=== PATIENT | female | born 1950 | race Caucasian/White ===

== ENCOUNTER → 2017-02-26 | Outpatient (CLI) | payer MEDICARE, BC ==
--- NOTE | 2017-02-26 12:50 | MM ---
Reason for exam: additional evaluation requested from prior study. Last mammogram was performed 1 year and 6 months ago. History: Patient is postmenopausal. Family history of breast cancer in mother at age 50 and breast cancer in aunt. Benign excisional biopsy of the right breast, 2001. Benign excisional biopsy of the right breast, 1996. Physical Findings: Nurse did not find any significant physical abnormalities on exam. MG 3D Diag Mammo W/Cad DALIA Bilateral CC and MLO view(s) were taken. LM view(s) were taken of the left breast. Prior study comparison: September 11, 2015, mammogram, performed at [facility]. January 24, 2014, mammogram, performed at [facility]. Finding: There are grouped/clustered calcifications in the upper inner quadrant of the left breast. Increase in number of calcifications since September 11, 2015 and January 24, 2014. These results were verbally communicated with the patient and result sheet given to the patient on 02/26/17. ASSESSMENT: Suspicious, BI-RAD 4 RECOMMENDATION: Stereotactic core biopsy of the left breast. Called with Dr. Angeles Sullivan mammographic findings and has scheduled an appointment for the patient for 04/01/17 at 10:[address] Markos Sullivan. Biposy scheduled for 03/03/17 at 2:20. PRELIMINARY REPORT CALLED AND FAXED TO DR. SULLIVAN ON 02/26/17 AT 300/TP.
== END | disposition home or self-care (01) ==
LOC: RADMAMWWP 10:54
PROVIDERS: ATTEND Family Medicine
DX: R92.8 Other abnormal and inconclusive findings on diagnostic imaging of breast (principal); Z80.3 Family history of malignant neoplasm of breast
CPT/HCPCS: G0204; G0279

== ENCOUNTER → 2017-03-03 | Day surgery (SDC) | payer MEDICARE, BC ==
[~2017-03-03] MED LIST: BACITRACIN OINT 1 EACH PACKET TOPICAL ONE; LIDOCAINE 1%-EPI 1:100,000 20 ML VIAL ONE
--- NOTE | 2017-03-03 15:20 | MM ---
EXAMINATION TYPE: MG stereo VAD BX LT DATE OF EXAM: 03/03/2017 2:52 PM COMPARISON: 02/26/2017 CLINICAL HISTORY: Left breast calcifications TECHNIQUE: Stereotactic guided core biopsy of left breast. FINDINGS: The procedure of stereotactic guided core biopsy was explained to the patient. Benefits, alternatives, and risks were discussed. An informed consent was then obtained. The shortness pathway for biopsy was chosen. Shortness pathway was chosen.. I performed the localization, then surgeon, and performed the remainder of the procedure. A vacuum assisted biopsy gun was used to obtain multiple core samples. The patient tolerated the procedure well without any immediate complication. The patient was kept in the radiology department for short stay after the procedure and then discharged home in stable condition. Targeted calcifications are identified in specimen mammogram. Post biopsy mammogram shows the clip to appear in satisfactory position relative to the targeted area of concern on the preprocedure images. IMPRESSION: SUCCESSFUL, UNCOMPLICATED STEREOTACTIC GUIDED CORE BIOPSY OF AREA OF CONCERN IN THE left BREAST, FULL PATHOLOGY RESULTS TO FOLLOW. 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 Recommendation Follow up mammogram of the left breast in 6 months. LUCÍA
== END ==
LOC: RADMAMWWP 12:53
PROVIDERS: ATTEND Surgery
DX: N62 Hypertrophy of breast (principal); R92.8 Other abnormal and inconclusive findings on diagnostic imaging of breast; N64.89 Other specified disorders of breast
CPT/HCPCS: 88305; 19081; A4648

== ENCOUNTER → 2017-04-14 | Outpatient (CLI) | payer MEDICARE, BC ==
[2017-04-14 10:17] LABS: ALT 39 U/L (9-52); AST 43 U/L (14-36); Alkaline Phosphatase 90 U/L (38-126); Anion Gap 11 mmol/L; Bilirubin, Delta 0.3 mg/dL (0.0-0.2); Blood Urea Nitrogen 11 mg/dL (7-17); Calcium 9.8 mg/dL (8.4-10.2); Carbon Dioxide 28 mmol/L (22-30); Chloride 99 mmol/L (98-107); Cholesterol 139 mg/dL (<200); Glucose 90 mg/dL (74-99); HDL Cholesterol 80 mg/dL (40-60); Non-African American GFR(MDRD) >60 (>60 ml/min/1.73 sqM); Potassium 4.1 mmol/L (3.5-5.1); Sodium 138 mmol/L (137-145); Total Bilirubin 1.3 mg/dL (0.2-1.3); Total Protein 7.5 g/dL (6.3-8.2); Triglycerides 50 mg/dL (<150)
== END | disposition home or self-care (01) ==
LOC: LABWHC1 09:23
PROVIDERS: ATTEND Family Medicine
DX: I25.9 Chronic ischemic heart disease, unspecified (principal); E78.2 Mixed hyperlipidemia; E11.8 Type 2 diabetes mellitus with unspecified complications
CPT/HCPCS: 36415; 80053; 80061; 82248; 83721

== ENCOUNTER → 2017-05-10 | Outpatient (CLI) | payer MEDICARE, BC ==
--- NOTE | 2017-05-10 10:12 | US ---
EXAMINATION TYPE: US abdomen complete DATE OF EXAM: 05/10/2017 COMPARISON: May 27, 2016 CLINICAL HISTORY: R10.9 abdominal pain. EXAM MEASUREMENTS: Liver Length: 13.3 cm Gallbladder Wall: 0.2 cm CBD: 0.5 cm Spleen: 7.8 cm Right Kidney: 9.3 x 5.1 x 4.6 cm Left Kidney: 9.4 x 4.3 x 4.9 cm Pancreas: wnl Liver: wnl Gallbladder: wnl Evidence for sonographic Bowman's sign: no CBD: wnl Spleen: wnl Right Kidney: wnl Left Kidney: wnl Upper IVC: wnl Abd Aorta: wnl The liver is homogenous. The intrahepatic portion of the IVC and proximal abdominal aorta are within normal limits. There is no evidence of cholelithiasis. Common bile duct is unremarkable. The visu alized portions of the pancreas are homogenous. The spleen is unremarkable. Kidneys are symmetric a nd free of hydronephrosis. No renal lesions are seen. IMPRESSION: Unremarkable study.
== END | disposition home or self-care (01) ==
LOC: RADUSWWP 09:35
PROVIDERS: ATTEND Family Medicine
DX: R10.9 Unspecified abdominal pain (principal)
CPT/HCPCS: 76700

== ENCOUNTER → 2017-09-07 | Outpatient (CLI) | payer MEDICARE, BC ==
--- NOTE | 2017-09-07 11:25 | MM ---
Reason for exam: follow-up at short interval from prior study. Last mammogram was performed 6 months ago. History: Patient is postmenopausal. Family history of breast cancer in mother at age 50 and breast cancer in aunt. Benign MG stereo VAD BX LT of the left breast, March 03, 2017. Benign excisional biopsy of the right breast, 2001. Benign excisional biopsy of the right breast, 1996. Physical Findings: Nurse did not find any significant physical abnormalities on exam. MG 3D Diag Mammo W/Cad LT CC and MLO view(s) were taken of the left breast. Prior study comparison: February 26, 2017, bilateral MG 3d diag mammo w/cad DALIA. September 11, 2015, mammogram, performed at [facility]. The breast tissue is heterogeneously dense. This may lower the sensitivity of mammography. Finding: There are typically benign round, regional calcifications in the left breast. Previous mammotome biopsy in the left breast. These results were verbally communicated with the patient and result sheet given to the patient on 09/07/17. ASSESSMENT: Benign, BI-RAD 2 RECOMMENDATION: Routine screening mammogram of both breasts in 6 months. Back on schedule for February 2018.
== END | disposition home or self-care (01) ==
LOC: RADMAMWWP 10:19
PROVIDERS: ATTEND Family Medicine
DX: R92.8 Other abnormal and inconclusive findings on diagnostic imaging of breast (principal)
CPT/HCPCS: G0206; G0279

== ENCOUNTER 2017-09-22 07:34 | Day surgery (SDC) | payer MEDICARE, BC ==
[2017-09-21 09:23] VITALS: BMI 20.7
[~2017-09-22 07:34] MED LIST changes: -BACITRACIN OINT 1 EACH PACKET TOPICAL ONE; +LIDOCAINE 1% 20 ML VIAL (10MG/ML) FOR IV START INTRADERMA PRN; -LIDOCAINE 1%-EPI 1:100,000 20 ML VIAL ONE
[2017-09-22] MEDS: LACTATED RINGERS 1,000 ML IV SCH ×2 (08:06→08:15)
[2017-09-22 08:11] VITALS: TEMP 97.7
[2017-09-22] MEDS ORDERED: PROPOFOL 10 MG/ML 20 ML VIAL IV ONE (08:18)
--- NOTE | 2017-09-22 08:38 | P.PCN ---
Date of Procedure: 09/22/17 Procedure(s) Performed: BRIEF HISTORY: Patient is a 67-year-old, pleasant, white female, scheduled for an upper endoscopy as a part of evaluation of intermittent dysphagia to solids for the last several months duration. Symptoms lately have been progressively getting worse. She also has heartburn and takes Protonix 40 mg daily.. PROCEDURE PERFORMED: Esophagogastroduodenoscopywith biopsy. PREOPERATIVE DIAGNOSIS: Intermittent dysphagia to solids. IV sedation per anesthesia. PROCEDURE: After informed consent was obtained, the patient was brought into the endoscopy unit. IV sedation was administered by Anesthesia under continuous monitoring. Initially the Olympus GIF-140 video endoscope was inserted into the mouth. Esophagus intubated without any difficulty. It was gradually advanced into the stomach and duodenum and carefully examined. The bulb and the second part of the duodenum appeared normal. The scope at this time was withdrawn to the stomach, adequately insufflated with air, and upon careful examination, mucosa of the antrum,had diffuse erythema consistent with antral gastritis and biopsies were done from this area. Thebody, cardia and the fundus appeared normal. The scope was then withdrawn into the esophagus. small hiatal hernia noted.The GE junction was located at 39 cm from the incisors. The esophagus appeared normal. biopsies were done from esophagus to rule out eosinophilic esophagitis.There were no erosions or ulcerations seen and the patient tolerated the procedure well. IMPRESSION: 1.Small hiatal hernia but no evidence of esophagitis or esophageal stricture. 2.Mild antral gastritis. RECOMMENDATIONS: The findings of this examination were discussed with the patient as well as her family. She was advised to follow with the biopsy results. She will continue with Protonix 40 mg daily and continue to follow antireflux measures..
[2017-09-22 09:03] VITALS: BP 163/74; PULSE 69; RESP 17
== END 2017-09-22 09:11 | disposition home or self-care (01) ==
LOC: ORWHC2ENDO 07:34
PROVIDERS: ATTEND Internal Medicine Gastroenterology
DX: K29.50 Unspecified chronic gastritis without bleeding (principal); K21.0 Gastro-esophageal reflux disease with esophagitis; K44.9 Diaphragmatic hernia without obstruction or gangrene; I10 Essential (primary) hypertension; I25.10 Atherosclerotic heart disease of native coronary artery without angina pectoris; E78.5 Hyperlipidemia, unspecified; J45.909 Unspecified asthma, uncomplicated; F41.9 Anxiety disorder, unspecified; F17.200 Nicotine dependence, unspecified, uncomplicated; Z79.82 Long term (current) use of aspirin; Z79.02 Long term (current) use of antithrombotics/antiplatelets; Z79.51 Long term (current) use of inhaled steroids; Z79.899 Other long term (current) drug therapy; Z95.5 Presence of coronary angioplasty implant and graft
CPT/HCPCS: 43239; J2704; 88305; 88342

== ENCOUNTER → 2017-10-27 | Outpatient (CLI) | payer MEDICARE, BC ==
[2017-10-27 11:27] LABS: ALT 39 U/L (9-52); AST 38 U/L (14-36); Albumin 4.3 g/dL (3.5-5.0); Alkaline Phosphatase 73 U/L (38-126); Anion Gap 10 mmol/L; Bilirubin, Delta 0.2 mg/dL (0.0-0.2); Bilirubin,Unconjugated 0.8 mg/dL (0.0-1.1); Blood Urea Nitrogen 7 mg/dL (7-17); Calcium 9.9 mg/dL (8.4-10.2); Carbon Dioxide 29 mmol/L (22-30); Chloride 98 mmol/L (98-107); Cholesterol 143 mg/dL (<200); Glucose 87 mg/dL (74-99); HDL Cholesterol 82 mg/dL (40-60); LDL Cholesterol,Calculated 42 mg/dL (0-99); Sodium 137 mmol/L (137-145); Triglycerides 93 mg/dL (<150)
[2017-10-27 11:38] LABS: Potassium 4.4 mmol/L (3.5-5.1)
== END | disposition home or self-care (01) ==
LOC: LABWHC1 10:27
PROVIDERS: ATTEND Internal Medicine Cardiovascular Disease
DX: E78.2 Mixed hyperlipidemia (principal); E11.8 Type 2 diabetes mellitus with unspecified complications; I10 Essential (primary) hypertension
CPT/HCPCS: 36415; 80048; 80061; 80076

== ENCOUNTER 2018-03-09 21:59 | Emergency (ER) | payer MEDICARE, BC ==
[2018-03-09 22:31] VITALS: PULSE 67
--- NOTE | 2018-03-09 22:49 | ED ---
Fall HPI - General Chief Complaint: Fall Stated Complaint: Head injury Time Seen by Provider: 03/09/18 22:36 Source: patient, RN notes reviewed Mode of arrival: ambulatory - History of Present Illness Initial Comments: This is a 67-year-old female who presents to the emergency department with chief complaint of head injury. Patient is accompanied by her neighbor. Patient states that yesterday she went to get up and her left foot gave out on her causing her to fall forward and hitting the right side of her forehead on a table in her laundry room. Denies loss of consciousness. She states that this happened at 9:30 last evening. Today she went to [facility] and was evaluated for head injury and left foot pain. X-ray of the left foot was negative and patient was placed in a postoperative boot. i-drive recommended patient to follow up with her primary care provider to get a computed tomography scan. Patient states that her primary care provider's office is closed today so she was unable to obtain an order. She presents to the emergency department complaining of nausea and a headache. She denies any vision changes, fevers or chills, chest pain or shortness of breath, abdominal pain, nausea or vomiting, dizziness. She denies blood thinner use. - Related Data Home Medications Medication Instructions Recorded Confirmed Aspirin EC [Ecotrin Low Dose] 81 mg PO DAILY 08/04/16 03/09/18 Isosorbide Mononitrate [Isosorbide 30 mg PO DAILY 08/04/16 03/09/18 Mononitrate ER] Lisinopril 40 mg PO QAM 08/04/16 03/09/18 Metoprolol Succinate [Toprol XL] 50 mg PO BID 08/04/16 03/09/18 Rosuvastatin Calcium [Crestor] 20 mg PO HS 08/04/16 03/09/18 Budesonide-Formot 160-4.5 Mcg 2 puff INHALATION RT-DAILY 09/21/17 03/09/18 [Symbicort 160-4.5 Mcg Inhaler] Ezetimibe [Zetia] 10 mg PO HS 09/21/17 03/09/18 LORazepam [Ativan] 0.5 mg PO DAILY PRN 09/21/17 03/09/18 Pantoprazole [Protonix] 40 mg PO DAILY PRN 09/21/17 03/09/18 amLODIPine BESYLATE [Norvasc] 2.5 mg PO DAILY 09/21/17 03/09/18 Albuterol Inhaler [Ventolin Hfa 2 puff INHALATION RT-Q6H PRN 03/09/18 03/09/18 Inhaler] Allergies Allergy/AdvReac Type Severity Reaction Status Date / Time bee venom protein (honey bee) Allergy Severe Anaphylaxis Verified 03/09/18 22:48 Review of Systems ROS Statement: Those systems with pertinent positive or pertinent negative responses have been documented in the HPI. ROS Other: All systems not noted in ROS Statement are negative. Past Medical History Past Medical History: Coronary Artery Disease (CAD), GERD/Reflux Additional Past Medical History / Comment(s): UTIs, History of Any Multi-Drug Resistant Organisms: MRSA Date of last positivie culture/infection: 2009 MDRO Source:: R arm Past Surgical History: Heart Catheterization With Stent Additional Past Surgical History / Comment(s): Approximately 2007 had 2 coronary stents placed at [facility], L foot surgery for bunion and has screw, EGD/colonoscopy with polypectomy-benign, R breast bx x 2-benign, cataracts removed bilaterally. Past Anesthesia/Blood Transfusion Reactions: No Reported Reaction Date of Last Stent Placement:: 2007? Past Psychological History: Anxiety Smoking Status: Current some day smoker Past Alcohol Use History: Occasional Past Drug Use History: None Reported - Past Family History Father Additional Family Medical History / Comment(s): Father "young" due to alcoholism. Mother Additional Family Medical History / Comment(s): Mother of a "blood clot in her heart" in her 60's General Exam - General Exam Comments Initial Comments: General: Awake and alert, well-developed; in no apparent distress. Neighbor is at bedside. HEENT: Large hematoma noted to the right frontal forehead. Pupils are equal, round and reactive to light. Extraocular movements intact. Oropharynx moist without erythema or exudate. Neck: Supple. Normal ROM. Cardiovascular: Regular rate and rhythm. No murmurs, rubs or gallops. Chest symmetrical. Respiratory: Lungs clear to auscultation bilaterally. No wheezes, rales or rhonchi. Normal respiratory effort with no use of accessory muscles. Musculoskeletal: Normal ROM, no tenderness, strength 5/5 bilateral upper and lower extremities. Ambulating normally. Skin: [place]ana, warm and dry without rashes or lesions. Neurological: Alert and oriented x3. CN II-XII grossly intact. Speech is fluent and answers are appropriate. No focal neuro deficits. Finger to nose testing normal. Rapid alternating movements normal. Romberg negative. Psychiatric: Normal mood and affect. No overt signs of depression or anxiety noted. Limitations: no limitations Course Vital Signs 03/09/18 22:26 Temperature 98.0 F Pulse Rate 67 Respiratory 20 Rate Blood Pressure 137/80 O2 Sat by Pulse 98 Oximetry Medical Decision Making - Medical Decision Making This is a 67-year-old female who presents to the emergency department with chief complaint of head injury. Patient sustained a hematoma to her right forehead last evening she fell and struck her head on a table. She denies any loss of consciousness however complains of nausea and headache today. Computed tomography scan of the brain was obtained. This revealed no intracranial abnormalities or fractures. She does have soft tissue swelling at the right frontal forehead. Recommended Tylenol or ibuprofen as needed for headache. Recommend following up with patient's primary care provider within 1-2 days. Patient is in agreement with plan and voices understanding. Vital signs are stable and she is in no acute distress. She'll be discharged home at this time. All questions answered. - Radiology Data Radiology results: report reviewed CT brain without contrast impression: No acute intracranial abnormality. Right frontal scalp soft tissue swelling. No fracture. Minimal left maxillary sinusitis. Disposition Clinical Impression: Head injury Disposition: HOME SELF-CARE Condition: Good Instructions: Head Injury (ED), Hematoma (ED) Additional Instructions: Please follow up with primary care provider within 1-2 days. Return to emergency department if symptoms should worsen or any concerns arise. Is patient prescribed a controlled substance at d/c from ED?: No Referrals: Yousif Olivares MD [Primary Care Provider] - 1-2 days Time of Disposition: 23:47
[2018-03-09] MEDS ORDERED: ACETAMINOPHEN TAB 325 MG TAB PO STA (23:38)
--- NOTE | 2018-03-09 23:43 | CT ---
EXAMINATION TYPE: CT brain wo con DATE OF EXAM: 03/09/2018 COMPARISON: NONE HISTORY: fall/headache CT DLP: 1054.20 mGycm Automated exposure control for dose reduction was used. FINDINGS: Ventricles have fairly normal size. There is no mass effect nor midline shift. There is no sign of in tracranial hemorrhage. There is mild cerebral cortical atrophy. The calvarium is intact. There is mil d right frontal scalp soft tissue swelling. IMPRESSION: NO ACUTE INTRACRANIAL ABNORMALITY. RIGHT FRONTAL SCALP SOFT TISSUE SWELLING. NO FRACTURE. MINIMAL LEF T MAXILLARY SINUSITIS.
[2018-03-10 00:39] VITALS: BP 130/78; RESP 18; TEMP 98.6
== END 2018-03-10 00:25 | disposition home or self-care (01) ==
LOC: EC 21:59
DX: S00.83XA Contusion of other part of head, initial encounter (principal); I25.10 Atherosclerotic heart disease of native coronary artery without angina pectoris; F17.200 Nicotine dependence, unspecified, uncomplicated; Z86.14 Personal history of Methicillin resistant Staphylococcus aureus infection; Z95.5 Presence of coronary angioplasty implant and graft; Z91.030 Bee allergy status; Z79.51 Long term (current) use of inhaled steroids; Z79.82 Long term (current) use of aspirin; Z79.899 Other long term (current) drug therapy; W01.190A Fall on same level from slipping, tripping and stumbling with subsequent striking against furniture, initial encounter; Y92.008 Other place in unspecified non-institutional (private) residence as the place of occurrence of the external cause
CPT/HCPCS: 70450; 99283

== ENCOUNTER → 2018-04-06 | Outpatient (CLI) | payer MEDICARE, BC ==
--- NOTE | 2018-04-06 13:14 | BD ---
EXAMINATION TYPE: Axial Bone Density DATE OF EXAM: 04/06/2018 COMPARISON: NONE CLINICAL HISTORY: Osteoporosis screening. Postmenopausal female. Height: 61 IN Weight: 113 LBS FRAX RISK QUESTIONS: History of Fracture in Adulthood: YES LT FOOT AGE 67 Current Tobacco Use: YES RISK FACTORS HISTORY OF: Family History of Osteoporosis: YES GRANDMOTHER(M) Active: MODERATE Postmenopausal woman: AGE 56 Lost more than 2 inches in height since high school: YES 3" MEDICATIONS: Additional Medications: BLOOD PRESSURE MEDS EXAM MEASUREMENTS: Bone mineral densitometry was performed using the [employer]. Bone mineral density as measured about the Lumbar spine is: ----- L1-L4(G/cm2): 1.149 T Score Values are as follows: ----- L2: 3.2 ----- L3: 3.1 ----- L4: 2.7 ----- L1-L4: 2.2 Bone mineral density BASELINE Bone mineral density about the R hip (g/cm2): 0.857 Bone mineral density about the L hip (g/cm2): 0.887 T Score values are as follows: -----R Neck: -1.3 -----L Neck: -1.1 -----R Total: -1.0 -----L Total: -1.0 Bone mineral density BASELINE IMPRESSION: Osteopenia (T Score between -2.5 and -1). There is slightly increased risk of fracture and the patient may be considered for treatment. Re-Screen 2-5 years. NOTE: T-SCORE=SD OF THE YOUNG ADULT MEAN.
--- NOTE | 2018-04-06 13:18 | MM ---
Reason for exam: screening (asymptomatic). Last mammogram was performed 7 months ago. History: Patient is postmenopausal. Family history of breast cancer in mother at age 50 and breast cancer in aunt. Benign MG stereo VAD BX LT of the left breast, March 03, 2017. Benign excisional biopsy of the right breast, 2001. Benign excisional biopsy of the right breast, 1996. Physical Findings: A clinical breast exam by your physician is recommended on an annual basis and results should be correlated with mammographic findings. MG 3D Screening Mammo W/Cad Bilateral CC and MLO view(s) were taken. Prior study comparison: September 07, 2017, left breast MG 3d diag mammo w/cad LT. February 26, 2017, bilateral MG 3d diag mammo w/cad DALIA. The breast tissue is heterogeneously dense. This may lower the sensitivity of mammography. There is a left breast mass, stable, containing a biopsy marker. Benign appearing bilateral calcifications. No suspicious abnormality. Upper outer quadrant right distortion from prior excisional biopsy, stable. ASSESSMENT: Benign, BI-RAD 2 RECOMMENDATION: Routine screening mammogram of both breasts in 1 year.
== END | disposition home or self-care (01) ==
LOC: RADMAMWWP 10:10
PROVIDERS: ATTEND Family Medicine
DX: Z12.31 Encounter for screening mammogram for malignant neoplasm of breast (principal); M85.80 Other specified disorders of bone density and structure, unspecified site; Z78.0 Asymptomatic menopausal state
CPT/HCPCS: 77063; 77067; 77080

== ENCOUNTER → 2018-05-06 | Outpatient (CLI) | payer MEDICARE, BC ==
[2018-05-06 10:34] LABS: Basophils % (A) 1 %; Eosinophils # (A) 0.3 k/uL (0-0.7); Eosinophils % (A) 7 %; HCT 42.3 % (34.0-46.0); HGB 14.1 gm/dL (11.4-16.0); Lymphocytes # (A) 1.8 k/uL (1.0-4.8); Lymphocytes % (A) 36 %; MCH 33.8 pg (25.0-35.0); MCHC 33.4 g/dL (31.0-37.0); MCV 101.1 fL (80.0-100.0); Macrocytosis Slight; Mean Platelet Volume 7.7; Monocytes # (A) 0.4 k/uL (0-1.0); Monocytes % (A) 9 %; Neutrophils # (A) 2.3 k/uL (1.3-7.7); Neutrophils % (A) 45 %; Platelet Count 181 k/uL (150-450); RBC 4.18 m/uL (3.80-5.40); RDW 13.5 % (11.5-15.5)
[2018-05-06 10:43] LABS: ALT 42 U/L (9-52); AST 51 U/L (14-36); Albumin 4.4 g/dL (3.5-5.0); Alkaline Phosphatase 79 U/L (38-126); Anion Gap 10 mmol/L; Bilirubin, Delta 0.2 mg/dL (0.0-0.2); Blood Urea Nitrogen 8 mg/dL (7-17); Calcium 9.7 mg/dL (8.4-10.2); Carbon Dioxide 32 mmol/L (22-30); Chloride 94 mmol/L (98-107); Cholesterol 131 mg/dL (<200); Glucose 96 mg/dL (74-99); HDL Cholesterol 93 mg/dL (40-60); LDL Cholesterol,Calculated 27 mg/dL (0-99); Potassium 3.9 mmol/L (3.5-5.1); Sodium 136 mmol/L (137-145); Total Bilirubin 1.2 mg/dL (0.2-1.3); Triglycerides 53 mg/dL (<150)
[2018-05-06 17:00] LABS: LDL Cholesterol, Direct 41.4 mg/dL (0.0-129.0)
[2018-05-06 17:37] LABS: Hepatitis C IgG Antibody Non-Reactive (Non-Reactive)
== END | disposition home or self-care (01) ==
LOC: LABWHC1 09:42
PROVIDERS: ATTEND Family Medicine
DX: E78.2 Mixed hyperlipidemia (principal); I10 Essential (primary) hypertension; I25.10 Atherosclerotic heart disease of native coronary artery without angina pectoris; Z72.9 Problem related to lifestyle, unspecified
CPT/HCPCS: 36415; 80053; 80061; 82248; 83721; 85025; 86803

== ENCOUNTER → 2018-06-15 | Outpatient (CLI) | payer MEDICARE, BC | END | disposition home or self-care (01) | LOC: RADUSWWP 10:11 | PROVIDERS: ATTEND Family Medicine | DX: R20.9 Unspecified disturbances of skin sensation (principal); L81.9 Disorder of pigmentation, unspecified; I73.9 Peripheral vascular disease, unspecified | CPT/HCPCS: 93923 ==

== ENCOUNTER → 2018-11-29 | Outpatient (CLI) | payer MEDICARE, BC ==
--- NOTE | 2018-11-29 16:30 | US ---
EXAMINATION TYPE: US abdomen complete DATE OF EXAM: 11/29/2018 COMPARISON: NONE CLINICAL HISTORY: R10.10 Upper abdominal pain, unspecified. EXAM MEASUREMENTS: Liver Length: 9.6 cm Gallbladder Wall: 0.1 cm CBD: 0.4 cm Spleen: 7.3 cm Right Kidney: 8.6 x 3.4 x 4.5 cm Left Kidney: 9.0 x 3.4 x 4.4 cm Short torso, technically difficult study. Pancreas: mostly obscured by overlying bowel gas Liver: wnl Gallbladder: wnl Evidence for sonographic Bowman's sign: no CBD: wnl Spleen: not well visualized Right Kidney: measures small Left Kidney: partially obscured by overlying bowel gas, wnl as seen Upper IVC: wnl Abd Aorta: heavily calcified IMPRESSION: 1. No acute ultrasound abnormality.
== END | disposition home or self-care (01) ==
LOC: RADUSWWP 11:02
PROVIDERS: ATTEND Family Medicine
DX: R10.10 Upper abdominal pain, unspecified (principal)
CPT/HCPCS: 76700

== ENCOUNTER → 2018-12-07 | Outpatient (CLI) | payer MEDICARE, BC ==
[2018-12-07 11:09] LABS: Basophils # (A) 0.1 k/uL (0-0.2); Basophils % (A) 1 %; Eosinophils # (A) 0.3 k/uL (0-0.7); Eosinophils % (A) 4 %; HCT 43.4 % (34.0-46.0); HGB 13.8 gm/dL (11.4-16.0); Lymphocytes # (A) 1.7 k/uL (1.0-4.8); Lymphocytes % (A) 27 %; MCH 32.9 pg (25.0-35.0); MCHC 31.7 g/dL (31.0-37.0); MCV 103.8 fL (80.0-100.0); Macrocytosis Slight; Monocytes # (A) 0.4 k/uL (0-1.0); Monocytes % (A) 6 %; Neutrophils # (A) 3.9 k/uL (1.3-7.7); Neutrophils % (A) 61 %; Platelet Count 238 k/uL (150-450); RBC 4.18 m/uL (3.80-5.40); RDW 12.6 % (11.5-15.5); WBC 6.4 k/uL (3.8-10.6)
[2018-12-07 16:02] LABS: Albumin 4.4 g/dL (3.80-4.90); Albumin/Globulin Ratio 2.1 (1.60-3.17); Anion Gap 7.2 mmol/L (4.00-12.00); Calcium 9.8 mg/dL (8.7-10.3); Carbon Dioxide 28.8 mmol/L (21.6-31.8); Globulin 2.1 g/dL (1.6-3.3); Magnesium 1.4 mg/dL (1.5-2.4); Potassium 4.2 mmol/L (3.5-5.5); Total Bilirubin 1.6 mg/dL (0.3-1.2); Total Protein 6.5 g/dL (6.2-8.2)
[2018-12-07 16:09] LABS: T4, Free (Free Thyroxine) 1.2 ng/dL (0.80-1.80)
== END | disposition home or self-care (01) ==
LOC: LABWHC1 09:48
PROVIDERS: ATTEND Family Medicine
DX: E78.2 Mixed hyperlipidemia (principal); I25.9 Chronic ischemic heart disease, unspecified; R63.4 Abnormal weight loss; R10.10 Upper abdominal pain, unspecified
CPT/HCPCS: 36415; 80053; 80061; 82150; 82607; 83690; 83735; 84439; 84443; 85025

== ENCOUNTER → 2019-05-18 | Outpatient (CLI) | payer MEDICARE, BC ==
--- NOTE | 2019-05-18 12:37 | MM ---
Reason for exam: screening (asymptomatic). Last mammogram was performed 1 year and 1 month ago. History: Patient is postmenopausal. Family history of breast cancer in mother at age 50 and breast cancer in aunt. Benign MG stereo VAD BX LT of the left breast, March 03, 2017. Benign excisional biopsy of the right breast, 2001. Benign excisional biopsy of the right breast, 1996. Physical Findings: A clinical breast exam by your physician is recommended on an annual basis and results should be correlated with mammographic findings. MG 3D Screening Mammo W/Cad Bilateral CC and MLO view(s) were taken. Prior study comparison: April 06, 2018, bilateral MG 3d screening mammo w/cad. September 07, 2017, left breast MG 3d diag mammo w/cad LT. The breast tissue is heterogeneously dense. This may lower the sensitivity of mammography. Benign appearing bilateral calcifications. No suspicious abnormality. Post surgical change on the right. Biopsy marker noted bilaterally. No significant changes when compared with prior studies. ASSESSMENT: Benign, BI-RAD 2 RECOMMENDATION: Routine screening mammogram of both breasts in 1 year.
== END | disposition home or self-care (01) ==
LOC: RADMAMWWP 10:47
PROVIDERS: ATTEND Family Medicine
DX: Z12.31 Encounter for screening mammogram for malignant neoplasm of breast (principal)
CPT/HCPCS: 77063; 77067

== ENCOUNTER → 2019-06-07 | Outpatient (CLI) | payer MEDICARE, BC ==
--- NOTE | 2019-06-08 14:05 | MR ---
EXAMINATION TYPE: MR cervical spine wo con DATE OF EXAM: 06/07/2019 COMPARISON: None HISTORY: Spondylosis without myelopathy or radiculopathy TECHNIQUE: Multiplanar, multisequence images of the cervical spine were acquired. FINDINGS: There is grade 1 anterolisthesis of C2 on C3, retrolisthesis of C3 on C4, retrolisthesis of C4 and C5, and retrolisthesis of C5 on C6 with posterior disc osteophyte complexes throughout the ce rvical spine. There is undulation of the spinal cord from C2 through C5 secondary to disc disease and spinal canal stenosis. There is a small vertebral body hemangioma of C4 and T2. C2-C3: There is disc uncovering from the anterolisthesis as well as a central disc herniation, uncove rtebral hypertrophy, and facet arthropathy. This creates mild spinal canal stenosis and mild bilatera l neural foraminal narrowing. C3-C4: There is retrolisthesis, uncovertebral hypertrophy, and facet arthropathy as well as a broad-b ased disc bulge creating mild spinal canal stenosis, severe left neural foraminal narrowing and mild right neuroforamen. C4-C5: There is a central disc herniation, retrolisthesis, ligamentum flavum buckling, facet arthropa thy, and uncovertebral hypertrophy creating moderate to severe spinal canal stenosis, severe left katheryn ral foraminal narrowing and moderate right neural foraminal narrowing. C5-C6: There is retrolisthesis, broad-based disc bulge, uncovertebral hypertrophy, and facet arthropa thy creating severe bilateral neural foraminal narrowing and severe spinal canal stenosis. C6-C7: There is a very small central disc herniation with facet arthropathy creating moderate left an d mild right neural foraminal narrowing in minimal spinal canal stenosis. C7-T1: There is disc desiccation without spinal canal stenosis nor neural foraminal narrowing. IMPRESSION: 1. Multilevel malalignment of the cervical spine is likely on a degenerative basis with grade 1 anter olisthesis of C2 on C3 and mild retrolisthesis of C3 on C4, C4 and C5, and C5 on C6. This in combinat ion with disc herniations and degenerative disc disease create multilevel spinal canal stenosis and a n undulating course as result of the cervical spinal cord. No current myelomalacia is yet seen althou gh this results from chronic impression upon the cord. 2. Mild spinal canal stenosis at C2-C3 and C3-C4 from degenerative disc disease. 3. Central disc herniation at C4-C5 contributing to [id number] spinal canal stenosis. 4. Severe spinal canal stenosis at C5-C6 from the retrolisthesis and degenerative disc disease. 5. Very small disc herniation at C6-C7 contributing to minimal spinal canal stenosis. 6. Variable degrees of neural foraminal narrowing as detailed above this level.
== END | disposition home or self-care (01) ==
LOC: RADMRIMAIN 13:07
PROVIDERS: ATTEND Physical Medicine & Rehabilitation
DX: M48.02 Spinal stenosis, cervical region (principal); M50.221 Other cervical disc displacement at C4-C5 level; M43.12 Spondylolisthesis, cervical region; M50.31 Other cervical disc degeneration, high cervical region; M48.062 Spinal stenosis, lumbar region with neurogenic claudication; M47.817 Spondylosis without myelopathy or radiculopathy, lumbosacral region; M54.5 Low back pain
CPT/HCPCS: 72141

== ENCOUNTER → 2019-09-25 | Outpatient (CLI) | payer MEDICARE, BC ==
[2019-09-25 11:31] LABS: HCT 37.7 % (34.0-46.0); HGB 13.1 gm/dL (11.4-16.0); MCH 35.7 pg (25.0-35.0); MCHC 34.7 g/dL (31.0-37.0); Macrocytosis Slight; Mean Platelet Volume 6.6; Platelet Count 207 k/uL (150-450); RBC 3.66 m/uL (3.80-5.40); RDW 12.5 % (11.5-15.5); WBC 5.8 k/uL (3.8-10.6)
[2019-09-25 16:55] LABS: African American GFR (CKD) 103.2 (60.0-200.0); Albumin 4.4 g/dL (3.80-4.90); Albumin/Globulin Ratio 2.44 (1.60-3.17); Anion Gap 6.6 mmol/L (4.00-12.00); Calcium 9.8 mg/dL (8.7-10.3); Carbon Dioxide 30.4 mmol/L (21.6-31.8); Chol/HDL Ratio 1.86; Globulin 1.8 g/dL (1.6-3.3); LDL Cholesterol,Calculated 55.4 mg/dL (0.0-131.0); Potassium 4.3 mmol/L (3.5-5.5); Total Protein 6.2 g/dL (6.2-8.2); VLDL Calculation 14.6 mg/dL (5.00-40.00)
[2019-09-25 17:03] LABS: T4, Free (Free Thyroxine) 1.2 ng/dL (0.80-1.80)
== END | disposition home or self-care (01) ==
LOC: LABWHC1 10:11
PROVIDERS: ATTEND Family Medicine
DX: I25.9 Chronic ischemic heart disease, unspecified (principal); R63.4 Abnormal weight loss
CPT/HCPCS: 36415; 80053; 80061; 83721; 84439; 84443; 85027

== ENCOUNTER → 2019-10-04 | Outpatient (CLI) | payer MEDICARE, BC ==
--- NOTE | 2019-10-04 13:27 | MR ---
EXAMINATION TYPE: MR angio head wo con DATE OF EXAM: 10/04/2019 COMPARISON: NONE HISTORY: ROCHE, Intracranial mass TECHNIQUE: Time of flight images focusing on the [place] of [place] were performed without contrast.. 2-D and 3-D postprocessing imaging is performed. FINDINGS: There is focal narrowing of the left internal carotid artery in the proximal aspect of the horizontal portion. Narrowing overall is approximately 50%. There is very mild narrowing of the supra clinoid portions likely from atheromatous change. The left vertebral artery is dominant. Vertebral ar teries and basilar artery are patent. Internal carotid arteries are also patent. Middle cerebral les roberta and anterior cerebral arteries as well as posterior cerebral arteries are also patent without st enosis or aneurysmal dilatation. The posterior communicating arteries are seen but very diminutive. C ircle of [place] appears to be intact. IMPRESSION: 1. No intracranial aneurysm or dissection. 2. Focal short segment stenosis of approximately 50% of the proximal horizontal portion of the left i nternal carotid artery.
--- NOTE | 2019-10-04 13:42 | MR ---
EXAMINATION TYPE: MR brain wo/w con DATE OF EXAM: 10/04/2019 COMPARISON: CT brain dated 03/09/2018 HISTORY: ROCHE, Intracranial mass TECHNIQUE: Multiplanar, multisequence images of the brain and brainstem is performed without and with IV contras t, utilizing 4.5 mL intravenous Gadavist . FINDINGS: Diffusion weighted images demonstrate no evidence of a recent infarct or other diffusion ab normality. There is no extra-axial fluid collection. Mild burden periventricular nonspecific white m atter change demonstrated as foci of T2/FLAIR hyperintensity. The ventricular system and cisternal s paces are symmetrically prominent compatible with age-related volume. Midline structures demonstrate normal morphology. The craniocervical junction appears within normal limits. Post contrast images demonstrate no abnormal enhancement. The dural venous sinuses appear pa tent. The visualized sinuses are clear other than a small mucosal retention cyst in the posterior lef t ethmoid sinus measuring less than 1 cm. The globes are intact. IMPRESSION: 1. No evidence of intracranial mass or abnormal enhancement. No acute infarct or midline shift. 2. Mild burden nonspecific white matter change is periventricular, typically in the basis of chronic microangiopathy. 3. Small left ethmoid mucosal retention cyst.
== END | disposition home or self-care (01) ==
LOC: RADMRIMAIN 11:56
PROVIDERS: ATTEND Family Medicine
DX: I65.22 Occlusion and stenosis of left carotid artery (principal); I73.9 Peripheral vascular disease, unspecified; J34.1 Cyst and mucocele of nose and nasal sinus; R90.0 Intracranial space-occupying lesion found on diagnostic imaging of central nervous system; R63.4 Abnormal weight loss
CPT/HCPCS: 70544; 70553; A9585

== ENCOUNTER → 2020-06-28 | Outpatient (CLI) | payer MEDICARE, BC ==
[2020-06-28 12:35] LABS: Basophils # (A) 0.1 k/uL (0-0.2); Basophils % (A) 1 %; Eosinophils # (A) 0.4 k/uL (0-0.7); Eosinophils % (A) 5 %; HCT 45.3 % (34.0-46.0); HGB 14.7 gm/dL (11.4-16.0); Lymphocytes # (A) 1.5 k/uL (1.0-4.8); Lymphocytes % (A) 20 %; MCH 33.7 pg (25.0-35.0); MCHC 32.3 g/dL (31.0-37.0); MCV 104.3 fL (80.0-100.0); Macrocytosis Slight; Mean Platelet Volume 7.7; Monocytes # (A) 0.4 k/uL (0-1.0); Monocytes % (A) 6 %; Neutrophils # (A) 4.9 k/uL (1.3-7.7); Neutrophils % (A) 66 %; Platelet Count 215 k/uL (150-450); RBC 4.35 m/uL (3.80-5.40); RDW 12.8 % (11.5-15.5); WBC 7.5 k/uL (3.8-10.6)
[2020-06-28 18:07] LABS: African American GFR (CKD) 103.2 (60.0-200.0); Albumin 4.7 g/dL (3.80-4.90); Albumin/Globulin Ratio 2.04 (1.60-3.17); Anion Gap 10.3 mmol/L (4.00-12.00); BUN/Creat Ratio 15.71 Ratio (12.00-20.00); Calcium 10.1 mg/dL (8.7-10.3); Carbon Dioxide 28.7 mmol/L (21.6-31.8); Chol/HDL Ratio 1.87; Globulin 2.3 g/dL (1.6-3.3); LDL Cholesterol,Calculated 50.4 mg/dL (0.0-131.0); Potassium 4.1 mmol/L (3.5-5.5); Total Bilirubin 2.7 mg/dL (0.2-1.2); VLDL Calculation 20.6 mg/dL (5.00-40.00)
== END | disposition home or self-care (01) ==
LOC: LABWHC1 10:48
PROVIDERS: ATTEND Family Medicine
DX: I25.9 Chronic ischemic heart disease, unspecified (principal); Z12.11 Encounter for screening for malignant neoplasm of colon
CPT/HCPCS: 36415; 80053; 80061; 83721; 85025

== ENCOUNTER → 2020-07-19 | Outpatient (CLI) | payer MEDICARE, BC ==
[2020-07-19 10:01] LABS: Albumin 4.5 g/dL (3.5-5.0); Bilirubin, Delta 0.2 mg/dL (0.0-0.2); Bilirubin,Unconjugated 0.8 mg/dL (0.0-1.1); Total Protein 7.1 g/dL (6.3-8.2)
--- NOTE | 2020-07-19 11:35 | US ---
EXAMINATION TYPE: US liver DATE OF EXAM: 07/19/2020 COMPARISON: US 2019 CLINICAL HISTORY: Elevated Biliruben R17. Elevated bilirubin EXAM MEASUREMENTS: Liver Length: 12.3 cm Gallbladder Wall: 0.1 cm CBD: 0.8 cm Right Kidney: 9.1 x 4.4 x 4.2 cm Technically difficult study, patient has short torso and is unable to lay on her back due to fused vertebre, exam done with patient in LLD position. Pancreas: visualized portions wnl, limited by overlying midline bowel gas Liver: wnl Gallbladder: wnl Evidence for sonographic Bowman's sign: no CBD: dilated Right Kidney: wnl IMPRESSION: 1. Visualized ultrasound abdomen is unremarkable.
== END | disposition home or self-care (01) ==
LOC: RADUSWWP 08:06
PROVIDERS: ATTEND Family Medicine
DX: R17 Unspecified jaundice (principal)
CPT/HCPCS: 76705; 80076

== ENCOUNTER → 2020-10-11 | Outpatient (CLI) | payer MEDICARE, BC ==
--- NOTE | 2020-10-15 12:14 | MM ---
Reason for exam: screening (asymptomatic). Last mammogram was performed 1 year and 5 months ago. History: Patient is postmenopausal. Family history of breast cancer in mother at age 50 and breast cancer in aunt. Benign MG stereo VAD BX LT of the left breast, March 03, 2017. Benign excisional biopsy of the right breast, 2001. Benign excisional biopsy of the right breast, 1996. Physical Findings: A clinical breast exam by your physician is recommended on an annual basis and results should be correlated with mammographic findings. MG 3D Screening Mammo W/Cad Bilateral CC and MLO view(s) were taken. XCCL view(s) were taken of the left breast. Prior study comparison: May 18, 2019, bilateral MG 3d screening mammo w/cad. April 06, 2018, bilateral MG 3d screening mammo w/cad. The breast tissue is heterogeneously dense. This may lower the sensitivity of mammography. Previous mammotome biopsy in the right and left breast. Excisional scar right upper outer quadrant is unchanged. Central posterior grouped calcification on the right are unchanged. No significant changes when compared with prior studies. ASSESSMENT: Benign, BI-RAD 2 RECOMMENDATION: Routine screening mammogram of both breasts in 1 year.
== END | disposition home or self-care (01) ==
LOC: RADMAMWWP 12:20
PROVIDERS: ATTEND Family Medicine
DX: Z12.31 Encounter for screening mammogram for malignant neoplasm of breast (principal)
CPT/HCPCS: 77063; 77067

== ENCOUNTER → 2021-02-12 | Outpatient (CLI) | payer MEDICARE, BC ==
[2021-02-12 23:08] LABS: Basophils # (A) 0.08 X 10*3/uL (0.00-0.10); Basophils % (A) 1.4 %; Eosinophils # (A) 0.45 X 10*3/uL (0.04-0.35); HCT 38.6 % (37.2-46.3); HGB 12.2 g/dL (12.0-15.0); Lymphocytes # (A) 1.93 X 10*3/uL (0.90-5.00); Lymphocytes % (A) 34.2 %; MCH 32.7 pg (27.0-32.0); MCHC 31.6 g/dL (32.0-37.0); MCV 103.5 fL (80.0-97.0); Mean Platelet Volume 10.7 fL (9.5-12.2); Monocytes # (A) 0.63 X 10*3/uL (0.20-1.00); Monocytes % (A) 11.2 %; Neutrophils # (A) 2.56 X 10*3/uL (1.80-7.70); Neutrophils % (A) 45.2 %; Platelet Count 298 X 10*3/uL (140-440); RBC 3.73 X 10*6/uL (4.10-5.20); WBC 5.65 X 10*3/uL (4.50-10.00)
[2021-02-13 05:38] LABS: African American GFR (CKD) 102.5 (60.0-200.0); Albumin 4.5 g/dL (3.80-4.90); Albumin/Globulin Ratio 2.14 (1.60-3.17); Anion Gap 10.6 mmol/L (4.00-12.00); BUN/Creat Ratio 12.86 Ratio (12.00-20.00); Calcium 10.3 mg/dL (8.7-10.3); Carbon Dioxide 27.4 mmol/L (21.6-31.8); Chol/HDL Ratio 2.13; Globulin 2.1 g/dL (1.6-3.3); LDL Cholesterol,Calculated 59.2 mg/dL (0.0-131.0); Non-African American GFR(CKD) 88.4 (60.0-200.0); Potassium 4.2 mmol/L (3.5-5.5); Total Bilirubin 1.1 mg/dL (0.3-1.2); Total Protein 6.6 g/dL (6.2-8.2); VLDL Calculation 18.8 mg/dL (5.00-40.00)
[2021-02-13 05:45] LABS: T4, Free (Free Thyroxine) 1.4 ng/dL (0.80-1.80)
== END | disposition home or self-care (01) ==
LOC: LABWHC1 10:58
PROVIDERS: ATTEND Family Medicine
DX: E78.2 Mixed hyperlipidemia (principal); I25.9 Chronic ischemic heart disease, unspecified; R63.4 Abnormal weight loss
CPT/HCPCS: 36415; 80053; 80061; 84439; 84443; 85025

== ENCOUNTER → 2022-02-18 | Outpatient (CLI) | payer MEDICARE, BC ==
--- NOTE | 2022-02-18 23:35 | CTL ---
EXAMINATION TYPE: CT Low Dose Lung DATE OF EXAM ORDERED: 02/18/2022 HISTORY: Personal tobacco use. 40 pack-year smoking history. Lung cancer screening CT DLP: 46.[address] CTDI: 1.4 mGy Automated exposure control for dose reduction was used. SCREENING VISIT: Initial COMPARISON: Chest radiograph 08/04/2016 TECHNIQUE: Low dose computed tomography scan was performed through the chest at 1 mm thick sections a nd reconstructed images in multiple planes at 1 mm and [address] DIAGNOSTIC QUALITY: Satisfactory FINDINGS: LUNG NODULES: None. -5 mm nodule in the left lower lobe on CT image 159/296. This nodule is solid. -3 mm nodule in the right lower lobe on CT image 169/296. This nodule is subsolid. -4 mm nodule in the right lower lobe on CT image 214/296. This nodule is solid. Central airways are normal course and caliber. No focal consolidations, pleural effusions, or pneumot horax. Cardiac size is borderline enlarged. Severe coronary artery calcifications. No pericardial effusion. Mild scattered atherosclerotic vascular calcifications of the thoracic aorta and origins of the great vessels without aneurysm. Main pulmonary artery is of normal caliber. Mediastinal or axillary lympha denopathy. Limited evaluation of the upper abdomen appears unremarkable. Moderate multilevel degenerative change s of the thoracic spine. Moderate dextro scoliotic curvature of the thoracolumbar spine. IMPRESSION: 1. No pulmonary nodules the largest measuring 5 mm in the lower lobe which appears solid. 2. Severe coronary artery calcifications. CT LUNG RAD AND CT CHEST RECOMMENDATION: Category 2s, benign appearance. Recommend continued annual s creening with low-dose CT chest. S Modifier (other clinically significant findings): yes, severe coronary artery calcifications
== END | disposition home or self-care (01) ==
LOC: RADCTMAIN 11:41
PROVIDERS: ATTEND Family Medicine
DX: Z12.2 Encounter for screening for malignant neoplasm of respiratory organs (principal); I25.10 Atherosclerotic heart disease of native coronary artery without angina pectoris; Z87.891 Personal history of nicotine dependence
CPT/HCPCS: 71271

== ENCOUNTER → 2022-04-15 | Outpatient (CLI) | payer MEDICARE, BC ==
--- NOTE | 2022-04-15 15:00 | BD ---
EXAMINATION TYPE: Axial Bone Density DATE OF EXAM: 04/15/2022 COMPARISON: NONE CLINICAL HISTORY: 71 years year old Female. ICD-10 CODE: Z78.0 Asymptomatic menopausal state Height: 5 FT 1/4 IN Weight: 104 FRAX RISK QUESTIONS: Alcohol (3 or more units per day): NO Family History (Parent hip fracture): NO Glucocorticoids (More than 3mos): NO (Ex: prednisone, prednisolone, methylprednisolone, dexamethasone, and hydrocortisone). History of Fracture in Adulthood: YES Secondary Osteoporosis: 1. Type 1 Diabetes: NO 2. Hyperthyroidism: NO 3. Menopause before 45: NO 4. Malnutrition: NO 5. Chronic liver disease: NO Rheumatoid Arthritis: NO Current Tobacco Use: NO RISK FACTORS HISTORY OF: Surgery to Spine/Hip(right/left)/Wrist (right/left): NO Family History of Osteoporosis: YES Active: YES Diet low in dairy products/other sources of calcium: NO Postmenopausal woman: YES Take estrogen and/or progesterone medications: NO Lost more than 2 inches in height since high school: YES Frequent falls: NO Poor Health: FAIR Hyperparathyroidism: NO Adrenal Insufficiency: NO MEDICATIONS: Additional Medications: METOPROLOL, SIMVASTATIN, INHALERS FOR ASTHMA,AMLODIPINE Additional History: CARPAL TUNNEL SURG TO BOTH WRISTS EXAM MEASUREMENTS: Bone mineral densitometry was performed using the Plex System. Bone mineral density as measured about the Lumbar spine is: ----- L1-L4(G/cm2): 1.499 T Score Values are as follows: ----- L1: 0.7 ----- L2: 3.5 ----- L3: 4.0 ----- L4: 2.4 ----- L1-L4: 2.7 Bone mineral density has: INCREASED 2.2 % since study of: 2017 Bone mineral density about the R hip (g/cm2): 0.760 Bone mineral density about the L hip (g/cm2): 0.826 T Score values are as follows: -----R Neck: -2.0 -----L Neck: -1.5 -----R Total: -1.7 -----L Total: -1.7 Bone mineral density has: DECREASED -10.8 % since study of: 2018 FRAX%s: The graph provided illustrates a 16.7 % chance for a major osteoporotic fx and a 3.5 % chance for the hips probability for fx in 10 years time. IMPRESSION: Osteopenia NOTE: T-SCORE=SD OF THE YOUNG ADULT MEAN.
[2022-04-15 18:17] LABS: African American GFR (CKD) 75.4 (60.0-200.0); Albumin 4.5 g/dL (3.8-4.9); Albumin/Globulin Ratio 1.82 (1.60-3.17); Anion Gap 14.5 mmol/L (10.00-18.00); BUN/Creat Ratio 15.38 Ratio (12.00-20.00); Blood Urea Nitrogen 13.8 mg/dL (9.0-27.0); Calcium 10.1 mg/dL (8.7-10.3); Carbon Dioxide 30.9 mmol/L (20.0-27.5); Globulin 2.5 g/dL (1.6-3.3); Total Bilirubin 1.7 mg/dL (0.30-1.20)
--- NOTE | 2022-04-16 11:12 | MM ---
Reason for Exam: Screening (asymptomatic). Last mammogram was performed 1 year(s) and 6 month(s) ago. Patient History: Menarche at age 16. First Full-Term at age 20. Postmenopausal. 1996, Benign Excisional Biopsy on the right side. 2001, Benign Excisional Biopsy on the right side. 03/03/2017, Benign Core Biopsy on the left side. Maternal aunt had breast cancer. Mother had breast cancer, age 50. Risk Values: Ada 5 year model risk: 4.4%. NCI Lifetime model risk: 12.4%. Prior Study Comparison: 04/06/2018 Bilateral Screening Mammogram, [facility]. 05/18/2019 Bilateral Screening Mammogram, [facility]. 10/11/2020 Bilateral Screening Mammogram, [facility]. Tissue Density: The breast tissue is extremely dense which could obscure a lesion on mammography. Findings: Analyzed By CAD. There is no suspicious group of microcalcifications or new suspicious mass in either breast. There are stable postoperative distortion upper outer right breast. Microclip marker from prior biopsy posterior right and left breast. Benign calcifications bilaterally. Overall Assessment: Benign, BI-RAD 2 Management: Screening Mammogram of both breasts in 1 year. A clinical breast exam by your physician is recommended on an annual basis and results should be correlated with mammographic findings. Electronically signed and approved by: Sridhar Velez M.D. Radiologis
== END | disposition home or self-care (01) ==
LOC: RADMAMWWP 10:30
PROVIDERS: ATTEND Family Medicine
DX: Z12.31 Encounter for screening mammogram for malignant neoplasm of breast (principal); M85.89 Other specified disorders of bone density and structure, multiple sites; Z78.0 Asymptomatic menopausal state; Z80.3 Family history of malignant neoplasm of breast
CPT/HCPCS: 77063; 77067; 77080; 80053

== ENCOUNTER → 2023-03-18 | Outpatient (CLI) | payer MEDICARE, BC ==
[2023-03-18 15:07] LABS: HCT 42.1 % (37.2-46.3); HGB 13.5 g/dL (12.0-15.0); MCH 34.5 pg (27.0-32.0); MCHC 32.1 g/dL (32.0-37.0); MCV 107.7 fL (80.0-97.0); Mean Platelet Volume 10.9 fL (9.5-12.2); NRBC Per 100 WBC 0 /100 WBCS (0.0-0.0); Platelet Count 224 X 10*3/uL (140-440); RBC 3.91 X 10*6/uL (4.10-5.20); RDW 13.6 % (11.5-14.5); WBC 7.67 X 10*3/uL (4.50-10.00)
[2023-03-18 15:49] LABS: ALT 18 U/L (8-44); AST 25 U/L (13-35); African American GFR (CKD) 65.6 (60.0-200.0); Albumin 4.6 g/dL (3.8-4.9); Alkaline Phosphatase 67 U/L (41-126); Blood Urea Nitrogen 13.4 mg/dL (9.0-27.0); Calcium 10.2 mg/dL (8.7-10.3); Carbon Dioxide 28.7 mmol/L (20.0-27.5); Chloride 94 mmol/L (96-109); Globulin 2.3 g/dL (1.6-3.3); Glucose 75 mg/dL (70-110); Non-African American GFR(CKD) 56.6 (60.0-200.0); Potassium 4.3 mmol/L (3.5-5.5); Sodium 139 mmol/L (135-145); Total Protein 6.9 g/dL (6.2-8.2)
[2023-03-18 15:54] LABS: Basophils # (A) 0.07 X 10*3/uL (0.00-0.10); Basophils % (A) 0.9 %; Eosinophils # (A) 0.22 X 10*3/uL (0.04-0.35); Eosinophils % (A) 2.9 %; Immature Grans, Automated 0.3 %; Lymphocytes # (A) 1.98 X 10*3/uL (0.90-5.00); Lymphocytes % (A) 25.8 %; Macrocytosis (M) 2+; Monocytes # (A) 0.98 X 10*3/uL (0.20-1.00); Monocytes % (A) 12.8 %; Neutrophils % (A) 57.3 %
[2023-03-18 17:41] LABS: ALT 18 U/L (8-44); AST 26 U/L (13-35); Albumin 4.6 g/dL (3.8-4.9); Albumin/Globulin Ratio 2.09 (1.60-3.17); Alkaline Phosphatase 67 U/L (41-126); Chol/HDL Ratio 1.83 Ratio; Globulin 2.2 g/dL (1.6-3.3); Total Protein 6.8 g/dL (6.2-8.2); VLDL Calculation 17.84 mg/dL (5.00-40.00)
== END | disposition home or self-care (01) ==
LOC: LABWHC1 09:32
PROVIDERS: ATTEND Family Medicine
DX: Z00.00 Encounter for general adult medical examination without abnormal findings (principal); I10 Essential (primary) hypertension; E87.6 Hypokalemia; E78.2 Mixed hyperlipidemia
CPT/HCPCS: 36415; 80053; 80061; 80076; 84443; 85025

== ENCOUNTER 2023-03-22 00:35 | Emergency (ER) | payer MEDICARE, BC ==
[2023-03-22 00:41] VITALS: RESP 16
--- NOTE | 2023-03-22 01:40 | CT ---
EXAM: CT Head Without Intravenous Contrast CLINICAL HISTORY: ITS.REASON CT Reason: fall, head lac TECHNIQUE: Axial computed tomography images of the head/brain without intravenous contrast. CTDI is 49.2 mGy and DLP is 1290.4 mGy-cm. This CT exam was performed using one or more of the following dose reduction techniques: automated exposure control, adjustment of the mA and/or kV according to patient size, and/or use of iterative reconstruction technique. COMPARISON: No relevant prior studies available. FINDINGS: Brain: Unremarkable. No hemorrhage. No significant white matter disease. No edema. Ventricles: Unremarkable. No ventriculomegaly. Bones/joints: Hypoplastic posterior ring of C1 narrowing the foramen magnum. Posterior fusion of the proximal cervical spine. No acute fracture. Soft tissues: Mild soft tissue swelling over the vertex with small subgaleal mid, and surgical pricila in place. Sinuses: Unremarkable as visualized. No acute sinusitis. Mastoid air cells: Unremarkable as visualized. No mastoid effusion. IMPRESSION: No evidence of acute intracranial pathology.
--- NOTE | 2023-03-22 02:04 | ED ---
General Adult HPI - General Chief complaint: Wound/Laceration Stated complaint: Head Lac Time Seen by Provider: 03/22/23 00:36 Source: EMS, RN notes reviewed, old records reviewed Mode of arrival: EMS Limitations: no limitations - History of Present Illness Initial comments: Patient is a 72-year-old female with past medical history remarkable for GERD, not on blood thinners, who presents emergency Department after hitting her head on a nightstand. 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 Patient is not on blood thinners. Did not lose consciousness. No other injuries. Patient had a significant amount of bleeding which was controlled with pressure. Lacerations the back of the head. Is alert and oriented with no complaints. No other acute complaints at this time. Has a history of chronic neck pain and prior neck surgeries. Presents for further evaluation at this time. - Related Data Home Medications Medication Instructions Recorded Confirmed Aspirin EC [Ecotrin Low Dose] 81 mg PO DAILY 08/04/16 03/11/22 Metoprolol Succinate [Toprol XL] 50 mg PO BID 08/04/16 03/11/22 Rosuvastatin Calcium [Crestor] 20 mg PO HS 08/04/16 03/11/22 Budesonide-Formot 160-4.5 Mcg 2 puff INHALATION QAM 09/21/17 03/11/22 [Symbicort 160-4.5 Mcg Inhaler] LORazepam [Ativan] 0.5 mg PO HS 09/21/17 03/11/22 Pantoprazole [Protonix] 40 mg PO DAILY PRN 09/21/17 03/11/22 amLODIPine BESYLATE [Norvasc] 2.5 mg PO HS 09/21/17 03/11/22 Albuterol Inhaler [Ventolin Hfa 2 puff INHALATION Q6H PRN 03/09/18 03/11/22 Inhaler] lisinopriL [Zestril] 20 mg PO BID 03/11/22 03/11/22 Allergies Allergy/AdvReac Type Severity Reaction Status Date / Time bee venom protein (honey bee) Allergy Severe Anaphylaxis Verified 03/11/22 11:15 Review of Systems ROS Statement: Those systems with pertinent positive or pertinent negative responses have been documented in the HPI. Review of Systems: CONST: Denies fever EYES: Denies blurry vision ENT: Denies nasal congestion C/V: Denies Chest pain RESP: Denies shortness of breath GI: Denies abdominal pain : Denies dysuria SKIN: Endorses scalp laceration MSK: Denies joint pain. NEURO: Denies headache ROS Other: All systems not noted in ROS Statement are negative. Past Medical History Past Medical History: Coronary Artery Disease (CAD), GERD/Reflux Additional Past Medical History / Comment(s): UTIs History of Any Multi-Drug Resistant Organisms: MRSA Date of last positivie culture/infection: 2009 MDRO Source:: R arm Past Surgical History: Heart Catheterization With Stent Additional Past Surgical History / Comment(s): Approximately 2007 had 2 coronary stents placed at [facility], L foot surgery for bunion and has screw, EGD/colonoscopy with polypectomy-benign, R breast bx x 2-benign, cataracts removed bilaterally. Past Anesthesia/Blood Transfusion Reactions: No Reported Reaction Date of Last Stent Placement:: 2007? Past Psychological History: Anxiety Smoking Status: Current every day smoker Past Alcohol Use History: Occasional Past Drug Use History: None Reported - Past Family History Father Additional Family Medical History / Comment(s): Father "young" due to a lcoholism. Mother Additional Family Medical History / Comment(s): Mother of a "blood clot in her heart" in her 60's. General Exam - General Exam Comments Initial Comments: General: Appears in no acute distress. HEAD: 2 scalp lacerations the posterior scalp. One approximately 6 cm la ceration linear in the mid occiput, and one approximately 3 cm laceration located just to the right of the posterior occiput. No step-offs or deformities of the skull. Negative lora sign. Negative raccoon eyes. EYES: PERRLA, EOMI, conjunctiva normal, no discharge. Pupils 3 mm and equal bilaterally. ENT: Hearing grossly intact, normal oropharynx. RESPIRATORY: Clear breath sounds bilaterally. No wheezes, rales, or rhonchi. C/V: Regular rate and rhythm. S1 and S2 auscultated,peripheral pulses 2+ and intact throughout ABD: Abd is soft, nontender, nondistended EXT: Normal range of motion, no obvious deformity SKIN: No rashes or lesions observed on exposed skin. NEURO: Alert and oriented x 4. Cranial nerves II-XII intact. No focal sensory or strength deficits. GCS of 15. Limitations: no limitations Course Vital Signs 03/22/23 03/22/23 00:36 02:10 Temperature 98.4 F 97.9 F Pulse Rate 76 79 Respiratory 16 16 Rate Blood Pressure 173/92 153/68 O2 Sat by Pulse 97 98 Oximetry Procedures - Laceration Laceration #1 Consent Obtained: verbal consent Indication: laceration Site: scalp Size (cm): 3 Description: linear Depth: simple, single layer Pre-repair: wound explored, irrigated extensively Type of Sutures: other (pricila) Patient Tolerated Procedure: well Laceration #2 Consent Obtained: verbal consent Indication: laceration Site: scalp Size (cm): 6 Description: linear Depth: simple, single layer Pre-repair: wound explored, irrigated extensively Type of Sutures: other (pricila) Size of Sutures: other (pricila) Patient Tolerated Procedure: well Medical Decision Making - Medical Decision Making Was pt. sent in by a medical professional or institution (, PA, [employer], urgent care, hospital, or [facility]...) When possible be specific @ -No Did you speak to anyone other than the patient for history (EMS, parent, family, police, friend...)? What history was obtained from this source @ -No Did you review nursing and triage notes (agree or disagree)? Why? @ -I reviewed and agree with nursing and triage notes Were old charts reviewed (outside hosp., previous admission, EMS record, old EKG, old radiological studies, urgent care reports/EKG's, [facility] records)? Report findings @ -No old charts were reviewed Differential Diagnosis (chest pain, altered mental status, abdominal pain women, abdominal pain men, vaginal bleeding, weakness, fever, dyspnea, syncope, headache, dizziness, GI bleed, back pain, seizure, CVA, palpatations, mental health, musculoskeletal)? @ -Intracranial injury, skull fracture, scalp laceration, scalp hematoma, concussion. This list is not all inclusive. EKG interpreted by me (3pts min.). @ -None done X-rays interpreted by me (1pt min.). @ -None done CT interpreted by me (1pt min.). @ -CT brain reveals no obvious acute intracranial process. U/S interpreted by me (1pt. min.). @ -None done What testing was considered but not performed or refused? (CT, X-rays, U/S, labs)? Why? @ -None What meds were considered but not given or refused? Why? @ -I offered analgesic medications which were declined. Did you discuss the management of the patient with other professionals (professionals i.e. , PA, [employer], lab, RT, psych nurse, social media marketing manager, psych rn, teacher, chief technology officer, machine adjuster leader case trim)? Give summary @ -No Was smoking cessation discussed for >3mins.? @ -No Was critical care preformed (if so, how long)? @ -No Were there social determinants of health that impacted care today? How? (Homelessness, low income, unemployed, alcoholism, drug addiction, transportation, low edu. Level, literacy, decrease access to med. care, assisted, rehab)? @ -No Was there de-escalation of care discussed even if they declined (Discuss DNR or withdrawal of care, Hospice)? DNR status @ -No What co-morbidities impacted this encounter? (DM, HTN, Smoking, COPD, CAD, Cancer, CVA, ARF, Chemo, Hep., AIDS, mental health diagnosis, sleep apnea, morbid obesity)? @ -None Was patient admitted / discharged? Hospital course, mention meds given and route, prescriptions, significant lab abnormalities, going to OR and other pertinent info. @ -Based on the patient's presentation and physical exam, presents after striking her head on the nightstand resulting in 2 scalp lacerations that were stapled closed by myself. Due to her age as well as the mechanism we will obtain CT brain as well. Labs are not required at this time. She declines analgesic medications. She is up-to-date on tetanus. She was in agreement with this plan. Vital signs within acceptable limits. Exam unremarkable other than lacerations. CT imaging revealed no obvious acute intracranial process. I updated the patient. Scalp lacerations or bleeding. No hematomas present under under the pricila. I believe it is safer to be discharged home. Instructions to have pricila removed in 5-7 days. She was in agreement this plan. I instructed the patient to follow up with their PCP in the next 1-3 days. I explained that the patient should return to the emergency department if they experience any worsening symptoms. Strict return precautions were discussed with the patient. The patient expressed understanding of these instructions. I answered all questions that the patient had. The patient was discharged home in good condition with their prescriptions and follow up information. Undiagnosed new problem with uncertain prognosis? @ -No Drug Therapy requiring intensive monitoring for toxicity (Heparin, Nitro, Insulin, Cardizem)? @ -No Were any procedures done? @ -No Diagnosis/symptom? @ -Scalp lacerations, stapled lacerations Acute, or Chronic, or Acute on Chronic? @ -Acute Uncomplicated (without systemic symptoms) or Complicated (systemic symptoms)? @ -Uncomplicated Side effects of treatment? @ -No Exacerbation, Progression, or Severe Exacerbation? @ -No Poses a threat to life or bodily function? How? (Chest pain, [place], [place], pneumonia, PE, COPD, DKA, ARF, appy, cholecystitis, CVA, Diverticulitis, Homicidal, Suicidal, threat to staff... and all critical care pts) @ -No Disposition Clinical Impression: Scalp laceration, Stapled skin wound Disposition: HOME SELF-CARE Condition: Stable Instructions (If sedation given, give patient instructions): Laceration (ED), Fall Prevention for Older Adults (ED), Staple Care (ED) Is patient prescribed a controlled substance at d/c from ED?: No Referrals: Michaela Sullivan MD [Primary Care Provider] - 1-2 days Time of Disposition: 01:59
[2023-03-22 02:12] VITALS: BP 153/68; PULSE 79; TEMP 97.9
== END 2023-03-22 02:12 | disposition home or self-care (01) ==
LOC: EC 00:35
DX: S01.01XA Laceration without foreign body of scalp, initial encounter (principal); I25.10 Atherosclerotic heart disease of native coronary artery without angina pectoris; K21.9 Gastro-esophageal reflux disease without esophagitis; F41.9 Anxiety disorder, unspecified; F17.200 Nicotine dependence, unspecified, uncomplicated; Z79.82 Long term (current) use of aspirin; Z79.899 Other long term (current) drug therapy; Z91.030 Bee allergy status; Z95.5 Presence of coronary angioplasty implant and graft; W22.8XXA Striking against or struck by other objects, initial encounter
CPT/HCPCS: 12004; 70450; 99284

== ENCOUNTER → 2023-04-02 | Outpatient (CLI) | payer MEDICARE, BC ==
--- NOTE | 2023-04-02 12:35 | CTL ---
EXAMINATION TYPE: CT Low Dose Lung DATE OF EXAM ORDERED: 04/02/2023 HISTORY: Lung cancer screening CT DLP: 41.[address] CTDI: 1.3 mGy Automated exposure control for dose reduction was used. SCREENING VISIT: 2 COMPARISON: 02/18/2022 TECHNIQUE: Low dose computed tomography scan was performed through the chest at 1 mm thick sections a nd reconstructed images in multiple planes at 1 mm and [address] DIAGNOSTIC QUALITY: Satisfactory The previously identified sub-6 mm nodules ranging from 3 to 5 mm are stable. There is increasing partially consolidative infiltrate and pleural thickening in the left lung base a nd clinical correlation is recommended regarding acute inflammation versus progressive chronic change . Short-term follow-up CT chest may be indicated following clinical correlation. There is no pleural effusion or pneumothorax. The great vessels the chest are normal and there is no mediastinal, hilar or axillary adenopathy. The heart is normal in size. Limited scanning through the upper abdomen reveals no gross abnormality. There are no focal lytic or blastic osseous changes. IMPRESSION: 1. Stable small sub-6 mm lung nodules as described above. 2. Increasing pleural thickening and partially consolidative density in the left lung base. Findings consistent with progressive chronic change versus acute inflammatory process and clinical correlation is recommended. Short-term follow-up CT chest may be indicated. 3. Lung RADS category 3S
== END | disposition home or self-care (01) ==
LOC: RADCTMAIN 11:54
PROVIDERS: ATTEND Family Medicine
DX: Z12.2 Encounter for screening for malignant neoplasm of respiratory organs (principal); J98.4 Other disorders of lung; R91.8 Other nonspecific abnormal finding of lung field; Z87.891 Personal history of nicotine dependence
CPT/HCPCS: 71271

== ENCOUNTER 2023-04-07 09:05 | Day surgery (SDC) | payer MEDICARE, BC ==
[2023-04-02 16:48] VITALS: BMI 20.2
[~2023-04-07 09:05] MED LIST changes: +LACTATED RINGERS 1,000 ML IV SCH; +LIDOCAINE 1% (10MG/ML) FOR IV START INTRADERMA PRN; -LIDOCAINE 1% 20 ML VIAL (10MG/ML) FOR IV START INTRADERMA PRN
[2023-04-07 09:43] VITALS: TEMP 98
[2023-04-07] MEDS ORDERED: PROPOFOL 10 MG/ML 20 ML VIAL IV ONE (10:30)
[2023-04-07] MEDS ORDERED: LIDOCAINE 2% INJ 20 MG/ML (2 ML VIAL) ONE (10:30)
--- NOTE | 2023-04-07 10:47 | P.PCN ---
Date of Procedure: 04/07/23 Procedure(s) Performed: BRIEF HISTORY: Patient is a 72-year-old, pleasant, white female scheduled for an upper endoscopy as a part of evaluation of GERD/intermittent dysphagia to solids. PROCEDURE PERFORMED: Esophagogastroduodenoscopy with biopsy. PREOPERATIVE DIAGNOSIS: GERD/intermittent dysphagia to solids. IV sedation per anesthesia. PROCEDURE: After informed consent was obtained, the patient was brought into the endoscopy unit. IV sedation was administered by Anesthesia under continuous monitoring. Initially the Olympus GIF-140 video endoscope was inserted into the mouth. Esophagus intubated without any difficulty. It was gradually advanced into the stomach and duodenum and carefully examined. The bulb and the second part of the duodenum appeared normal. The scope at this time was withdrawn to the stomach, adequately insufflated with air, and upon careful examination, mucosa of the antrum, had mild gastritis and biopsies were done from this area. Mucosa of the body, cardia and the fundus appeared normal. The scope was then withdrawn into the esophagus. Small hiatal hernia seen. The GE junction was located at 39 cm from the incisors. The esophagus appeared normal. There were no erosions or ulcerations seen and no evidence of esophageal stricture. Biopsies were done from the mid and distal esophagus and the patient tolerated the procedure well. IMPRESSION: 1. Small hiatal hernia but no evidence of esophagitis or esophageal stricture. 2. Mild antral gastritis. RECOMMENDATIONS: The findings of this examination were discussed with the patient as well as her family. She was advised to with the biopsy results. In the meantime she will continue with Protonix 40 mg daily and follow antireflux measures..
[2023-04-07 11:10] VITALS: BP 164/81; PULSE 76; RESP 16
== END 2023-04-07 11:40 | disposition home or self-care (01) ==
LOC: ORWHC2ENDO 09:05
PROVIDERS: ATTEND Internal Medicine Gastroenterology
DX: K29.50 Unspecified chronic gastritis without bleeding (principal); K21.00 Gastro-esophageal reflux disease with esophagitis, without bleeding; K44.9 Diaphragmatic hernia without obstruction or gangrene; I25.10 Atherosclerotic heart disease of native coronary artery without angina pectoris; Z95.5 Presence of coronary angioplasty implant and graft; I10 Essential (primary) hypertension; E78.5 Hyperlipidemia, unspecified; J44.9 Chronic obstructive pulmonary disease, unspecified; F17.200 Nicotine dependence, unspecified, uncomplicated; F41.9 Anxiety disorder, unspecified; Z91.030 Bee allergy status; Z79.51 Long term (current) use of inhaled steroids; Z79.899 Other long term (current) drug therapy; Z79.82 Long term (current) use of aspirin
CPT/HCPCS: 88305; 43239; J2704; J2001

== ENCOUNTER → 2023-04-16 | Outpatient (CLI) | payer MEDICARE, BC ==
--- NOTE | 2023-04-19 09:05 | MM ---
Reason for Exam: Screening (asymptomatic). Last screening mammogram was performed 12 month(s) ago. Patient History: Menarche at age 16. First Full-Term at age 20. Postmenopausal. 1996, Benign Excisional Biopsy on the right side. 2001, Benign Excisional Biopsy on the right side. 03/03/2017, Benign Core Biopsy on the left side. Maternal aunt had breast cancer, age 50. Mother had breast cancer, age 50. Risk Values: Daa 5 year model risk: 4.4%. NCI Lifetime model risk: 11.9%. Prior Study Comparison: 05/18/2019 Bilateral Screening Mammogram, [facility]. 10/11/2020 Bilateral Screening Mammogram, [facility]. 04/15/2022 Bilateral MG 3D screening mammo w/cad, [facility]. Tissue Density: The breast tissue is heterogeneously dense. This may lower the sensitivity of mammography. Findings: Analyzed By CAD. Pattern appears symmetrical and stable. Benign calcifications are present bilaterally. Core markers are present bilaterally. No significant interval changes are evident. No suspicious groups of microcalcifications, spiculated or lobular masses, architectural distortion or other secondary signs of malignancy are mammographically apparent. Overall Assessment: Benign, BI-RAD 2 Management: Screening Mammogram of both breasts in 1 year. A negative mammogram report should not preclude additional follow up of suspicious palpable abnormalities. Patient should continue monthly self breast exam. A clinical breast exam by your physician is recommended on an annual basis and results should be correlated with mammographic findings. Electronically signed and approved by: Julius Soria D.O. Radiologis
== END | disposition home or self-care (01) ==
LOC: RADMAMWWP 11:19
PROVIDERS: ATTEND Family Medicine
DX: Z12.31 Encounter for screening mammogram for malignant neoplasm of breast (principal); Z78.0 Asymptomatic menopausal state; Z80.3 Family history of malignant neoplasm of breast
CPT/HCPCS: 77063; 77067

== ENCOUNTER 2023-09-06 13:37 | Emergency (ER) | payer MEDICARE, BC ==
[2023-09-06 14:23] VITALS: PULSE 67
[2023-09-06] MEDS ORDERED: KETOROLAC 15 MG/ML 1 ML VIAL IVP STA (14:47)
[2023-09-06] MEDS ORDERED: HYDROmorphone 0.5 MG/0.5 ML SYRINGE IVP STA (14:47)
--- NOTE | 2023-09-06 15:13 | ED ---
General Adult HPI - General Chief complaint: Back Pain/Injury Stated complaint: fall back pain Time Seen by Provider: 09/06/23 14:15 Source: patient, RN notes reviewed, old records reviewed Mode of arrival: wheelchair Limitations: no limitations - History of Present Illness Initial comments: This is a 73-year-old female presents emergency department stating that one week ago today she tripped and fell backwards and landed on her back. Patient states she went and got x-rays extremity was negative however the pain continues. Patient states the pain is actually worsening with any Movement whatsoever. Patient states if she lies still in bed it does not hurt her. Patient denies any chest pain or rib pain. Patient denies any shortness of breath or difficulty breathing. Patient denies abdominal pain. Patient denies any extremity pain. Patient states the pain is from the midsection her back to the lower back. Patient denies any areas of numbness or weakness. - Related Data Home Medications Medication Instructions Recorded Confirmed Metoprolol Succinate [Toprol XL] 50 mg PO BID 08/04/16 04/02/23 Rosuvastatin Calcium [Crestor] 20 mg PO HS 08/04/16 04/02/23 Budesonide-Formot 160-4.5 Mcg 1 puff INHALATION BID 09/21/17 04/02/23 [Symbicort 160-4.5 Mcg Inhaler] LORazepam [Ativan] 0.5 mg PO DAILY PRN 09/21/17 04/02/23 Pantoprazole [Protonix] 40 mg PO DAILY PRN 09/21/17 04/02/23 amLODIPine BESYLATE [Norvasc] 5 mg PO DAILY 09/21/17 04/02/23 Albuterol Inhaler [Ventolin Hfa 2 puff INHALATION Q6H PRN 03/09/18 04/02/23 Inhaler] lisinopriL [Zestril] 20 mg PO BID 03/11/22 04/02/23 HYDROcodone/APAP 5-325MG [Sterling 1 tab PO Q6HR PRN 04/02/23 04/02/23 5-325] Isosorbide Mononitrate [Isosorbide 30 mg PO DAILY 04/02/23 04/02/23 Mononitrate ER] Potassium Chloride [K-Tab ER] 10 meq PO DAILY 04/02/23 04/02/23 Previous Rx's Medication Instructions Recorded Ketorolac [Toradol] 10 mg PO Q8HR #12 tab 09/06/23 Allergies Allergy/AdvReac Type Severity Reaction Status Date / Time bee venom protein (honey bee) Allergy Severe Anaphylaxis Verified 09/06/23 14:00 Review of Systems ROS Statement: Those systems with pertinent positive or pertinent negative responses have been documented in the HPI. ROS Other: All systems not noted in ROS Statement are negative. Past Medical History Past Medical History: Coronary Artery Disease (CAD), GERD/Reflux, Hyperlipidemia, Hypertension, Osteoarthritis (OA) Additional Past Medical History / Comment(s): UTIs History of Any Multi-Drug Resistant Organisms: MRSA Date of last positivie culture/infection: 2009 MDRO Source:: R arm Past Surgical History: Heart Catheterization With Stent Additional Past Surgical History / Comment(s): Approximately 2007 had 2 coronary stents placed at [facility], L foot surgery for bunion and has screw, EGD/colonoscopy with polypectomy-benign, R breast bx x 2-benign, cataracts removed bilaterally. Past Anesthesia/Blood Transfusion Reactions: No Reported Reaction Date of Last Stent Placement:: 2007? Past Psychological History: Anxiety Smoking Status: Current every day smoker Past Alcohol Use History: Occasional Past Drug Use History: None Reported - Past Family History Father Additional Family Medical History / Comment(s): Father "young" due to alcoholism. Mother Additional Family Medical History / Comment(s): Mother of a "blood clot in her heart" in her 60's. General Exam - General Exam Comments Initial Comments: GENERAL: Patient is well-developed and well-nourished. Patient is nontoxic and well- hydrated and is in moderate distress. ENT: Neck is soft and supple. No significant lymphadenopathy is noted. Oropharynx is clear. Moist mucous membranes. Neck has full range of motion without eliciting any pain. EYES: The sclera were anicteric and conjunctiva were pink and moist. Extraocular movements were intact and pupils were equal round and reactive to light. Eyelids were unremarkable. PULMONARY: Unlabored respirations. Good breath sounds bilaterally. No audible rales rhonchi or wheezing was noted. CARDIOVASCULAR: There is a regular rate and rhythm without any murmurs gallops or rubs. ABDOMEN: Soft and nontender with normal bowel sounds. SKIN: Skin is clear with no lesions or rashes and otherwise unremarkable. NEUROLOGIC: Patient is alert and oriented x3. Cranial nerves II through XII are grossly intact. Motor and sensory are also intact. Normal speech, volume and content. Symmetrical smile. MUSCULOSKELETAL: Normal extremities with adequate strength and full range of motion. Patient has tenderness just lateral to the spine bilaterally. Patient'sprocess tenderness. Patient has no numbness or weakness. LYMPHATICS: No significant lymphadenopathy is noted PSYCHIATRIC: Normal psychiatric evaluation. Limitations: no limitations Course Vital Signs 09/06/23 13:56 Temperature 98.2 F Pulse Rate 67 Respiratory 16 Rate Blood Pressure 138/73 O2 Sat by Pulse 95 Oximetry Medical Decision Making - Medical Decision Making Was pt. sent in by a medical professional or institution (, PA, [employer] [facility], urgent care, hospital, or detention...) When possible be specific @ -No Did you speak to anyone other than the patient for history (EMS, parent, family, police, friend...)? What history was obtained from this source @ -Patient's daughter gives some of the history Did you review nursing and triage notes (agree or disagree)? Why? @ -I reviewed and agree with nursing and triage notes Were old charts reviewed (outside hosp., previous admission, EMS record, old EKG, old radiological studies, urgent care reports/EKG's, detention records)? Report findings @ -No old charts were reviewed Differential Diagnosis (chest pain, altered mental status, abdominal pain women, abdominal pain men, vaginal bleeding, weakness, fever, dyspnea, syncope, headache, dizziness, GI bleed, back pain, seizure, CVA, palpatations, mental health, musculoskeletal)? @ -Differential Musculoskeletal Muscular strain, contusion, ligament sprain, fracture, arthritis, septic arthritis, bursitis, cellulitis, muscle spasm, nerve compression, DVT, arterial occlusion, herpes zoster, electrolyte abnormality, tumor.... This is not meant to be in all inclusive list EKG interpreted by me (3pts min.). @ -As above X-rays interpreted by me (1pt min.). @ -None done CT interpreted by me (1pt min.). @ -Computed tomography scan showed a T12 wedge fracture and some mild disc herniation causing some@levels T7 and 8 and T8 and T9 is causing some mild central cord stenosis. U/S interpreted by me (1pt. min.). @ -None done What testing was considered but not performed or refused? (CT, X-rays, U/S, labs)? Why? @ -None What meds were considered but not given or refused? Why? @ -None Did you discuss the management of the patient with other professionals (professionals i.e. , PA, [employer] [facility], lab, RT, psych nurse, social media content manager, tailor men's ready to wear, teacher, special loan officer, rn field case manager)? Give summary @ -No Was smoking cessation discussed for >3mins.? @ -No Was critical care preformed (if so, how long)? @ -No Were there social determinants of health that impacted care today? How? (Homelessness, low income, unemployed, alcoholism, drug addiction, [place] sportation, low edu. Level, literacy, decrease access to med. care, penitentiary, rehab)? @ -No Was there de-escalation of care discussed even if they declined (Discuss DNR or withdrawal of care, Hospice)? DNR status @ -No What co-morbidities impacted this encounter? (DM, HTN, Smoking, COPD, CAD, Cancer, CVA, ARF, Chemo, Hep., AIDS, mental health diagnosis, sleep apnea, morbid obesity)? @ -None Was patient admitted / discharged? Hospital course, mention meds given and route, prescriptions, significant lab abnormalities, going to OR and other pertinent info. @ -Patient received Toradol and 0.5 of Dilaudid in the emergency department was feeling considerably better. Undiagnosed new problem with uncertain prognosis? @ -No Drug Therapy requiring intensive monitoring for toxicity (Heparin, Nitro, Insulin, Cardizem)? @ -No Were any procedures done? @ -No Diagnosis/symptom? @ -T12 wedge fracture Acute, or Chronic, or Acute on Chronic? @ -Acute Uncomplicated (without systemic symptoms) or Complicated (systemic symptoms)? @ -Complicated Side effects of treatment? @ -No Exacerbation, Progression, or Severe Exacerbation? @ -No Poses a threat to life or bodily function? How? (Chest pain, [place], [place], pneumonia, PE, COPD, DKA, ARF, appy, cholecystitis, CVA, Diverticulitis, Homicidal, Suicidal, threat to staff... and all critical care pts) @ -No Diagnosis/symptom? @ -Disc herniation Acute, or Chronic, or Acute on Chronic? @ -Acute Uncomplicated (without systemic symptoms) or Complicated (systemic symptoms)? @ -Complicated Side effects of treatment? @ -none Exacerbation, Progression, or Severe Exacerbation] @ -no Poses a threat to life or bodily function? @ -no Disposition Clinical Impression: Wedge compression fracture of T12 vertebra, Thoracic disc herniation Disposition: HOME SELF-CARE Condition: Good Additional Instructions: Patient should take the Toradol as prescribed. Patient continue taking her Sterling. Patient should stop taking the steroids. Patient should follow-up with Dr. Monroe. Patient should return to the emergency department if any worsening symptoms or new symptoms Prescriptions: Ketorolac [Toradol] 10 mg PO Q8HR #12 tab Is patient prescribed a controlled substance at d/c from ED?: No Referrals: Michaela Sullivan MD [Primary Care Provider] - 1-2 days Collins Monroe DO [Doctor of Osteopathic Medicine] - 1-2 days Time of Disposition: 16:50
--- NOTE | 2023-09-06 16:39 | CT ---
EXAMINATION TYPE: CT thor lumbar spine wo con CT DLP: 624 mGycm, Automated exposure control for dose reduction was used. DATE OF EXAM: 09/06/2023 4:14 PM CLINICAL INDICATION:Female, 73 years old with history of Trauma; Back pain from fall COMPARISON: No direct comparisons. TECHNIQUE: Axial images of the thoracic and lumbar spine were obtained without contrast. Coronal and sagittal reformats were performed. CT Contrast: Contrast used: none. Oral contrast used: none. FINDINGS: Diffuse bone demineralization. Levoscoliotic curvature of the thoracolumbar spine. Age-indeterminate anterior wedge compression deformity of the T2 vertebral body with approximately 10 % height loss. No retropulsion. Additionally there is some sclerosis involving the inferior endplate of the T12 vertebral body. Remaining vertebral body heights are maintained. Multilevel mild to modera te degenerative disc disease of the thoracolumbar spine with disc space narrowing, endplate sclerosis , vacuum disc disease, and anterior osteophytosis. No spondylolisthesis identified. Left paracentral disc herniation with mild central canal narrowing at T7-T8 and T8-T9. Posterior disc osteophyte complex at T9-T10 and L1-L2 resulting in mild central canal stenosis. Right foraminal zon e disc bulge without significant central canal stenosis. Broad-based disc bulge at L3-L4, L4-L5 with mild central canal stenosis. Mild bilateral neural foraminal stenosis at L3-L4. No significant neural foraminal stenosis of the thoracic spine. Atherosclerotic calcification of the aorta and its branches. Severe coronary tear calcifications. Col onic diverticulosis without evidence for acute diverticulitis. Right lower lobe subsegmental consolid ation. Left lower lobe punctate calcific granuloma. IMPRESSION: 1. Age-indeterminate anterior wedge compression deformity the T12 vertebral body with approximately 1 0% height loss and no retropulsion. Correlate with point tenderness. 2. Left paracentral disc herniations resulting in mild central canal stenosis at T7-T8 and T8-T9. Add itional multilevel degenerative disc disease as described above. 3. Levoscoliotic curvature of the thoracolumbar spine.
[2023-09-06 17:13] VITALS: BP 146/68; RESP 18; TEMP 98.3
== END 2023-09-06 17:06 | disposition home or self-care (01) ==
LOC: EC 13:37
DX: S22.080A Wedge compression fracture of T11-T12 vertebra, initial encounter for closed fracture (principal); M48.04 Spinal stenosis, thoracic region; M48.061 Spinal stenosis, lumbar region without neurogenic claudication; I25.10 Atherosclerotic heart disease of native coronary artery without angina pectoris; K21.9 Gastro-esophageal reflux disease without esophagitis; E78.5 Hyperlipidemia, unspecified; I10 Essential (primary) hypertension; M19.90 Unspecified osteoarthritis, unspecified site; F41.9 Anxiety disorder, unspecified; F17.200 Nicotine dependence, unspecified, uncomplicated; Z79.899 Other long term (current) drug therapy; Z79.1 Long term (current) use of non-steroidal anti-inflammatories (NSAID); Z91.030 Bee allergy status; W01.0XXA Fall on same level from slipping, tripping and stumbling without subsequent striking against object, initial encounter
CPT/HCPCS: 72128; 72131; 99284; 96374; 96375; J1885; J1170

== ENCOUNTER → 2023-10-16 | Outpatient (CLI) | payer MEDICARE, BC ==
--- NOTE | 2023-10-17 08:46 | MR ---
EXAMINATION TYPE: MR tspine/lspine wo con DATE OF EXAM: 10/16/2023 3:21 PM CLINICAL INDICATION:Female, 73 years old with history of M54.50, M47.817, M54.6; PHH, Low back pain i nto left side, Hx fractured back, recent fall COMPARISON: 03/26/2014 09/13/2023 TECHNIQUE: Multi planar, multi sequence imaging was performed utilizing: T1-weighted, T2-weighted, a nd turbo inversion recovery imaging of the thoracic and lumbar spine. IV Contrast: cc . None. FINDINGS: Alignment: The thoracic and lumbar vertebral bodies have preserved heights and scoliosis alignment of the lumbar spine. Cord: The conus medullaris and the distal spinal cord appear unremarkable with regards to their signa l intensity and morphology. Bones/Discs: Bony edema with high STIR signal involving the inferior endplate of L3 and into the midd le portion of T11 vertebral bodies. There is at least 25-50% height loss of the T11 vertebral body an d up to 25% height loss of the L3 vertebral body. No significant retropulsion. There is multilevel de generation changes with disc space narrowing and osteophyte formation. Disc bulging at multiple level s throughout the spine without significant spinal canal stenosis. THORACIC: No evidence for significant spinal canal stenosis multilevel disc bulging with narrowing th e ventral subarachnoid space. There is facet joint arthropathy with neural foraminal stenosis worse a t T9-T10 with at least mild to moderate bilateral.. LUMBAR: T12-L1: No evidence of significant spinal canal stenosis or neural foraminal stenosis. L1-L2: Disc bulge and facet joint arthropathy result in mild spinal canal and moderate mild left neur al foraminal stenosis. L2-L3: Disc bulge and facet joint arthropathy result in mild spinal canal and mild to moderate mild l eft neural foraminal stenosis. L3-L4: Disc bulge and facet joint arthropathy result in mild spinal canal and moderate severe left an d moderate right neural foraminal stenosis. L4-L5: Disc bulge and facet joint arthropathy result in mild spinal canal and moderate severe left an d mild right neural foraminal stenosis. L5-S1: The disc is rounded posterior morphology without significant spinal canal stenosis. Facet join t arthropathy with mild neural foraminal stenosis. Other findings: None. IMPRESSION: 1. Acute/subacute T11 and L3 compression deformities with up to 25% height loss of T11 and 25% heigh t loss of L3. No significant retropulsion at these levels. 2. No significant spinal canal stenosis. 3. Scattered facet joint arthropathy worse in thoracic spine at T9-T10 with at least mild to moderat e bilateral and moderate to severe left L4-L5 and L3-L4 in the lumbar spine.
== END | disposition home or self-care (01) ==
LOC: RADMRIMAIN 13:24
PROVIDERS: ATTEND Orthopaedic Surgery
DX: M48.55XA Collapsed vertebra, not elsewhere classified, thoracolumbar region, initial encounter for fracture (principal); M47.815 Spondylosis without myelopathy or radiculopathy, thoracolumbar region; M47.817 Spondylosis without myelopathy or radiculopathy, lumbosacral region
CPT/HCPCS: 72146; 72148

== ENCOUNTER → 2023-11-10 | Outpatient (CLI) | payer MEDICARE, BC ==
[2023-11-10 18:55] LABS: HCT 38.7 % (37.2-46.3); HGB 12.5 g/dL (12.0-15.0); MCH 34.3 pg (27.0-32.0); MCHC 32.3 g/dL (32.0-37.0); MCV 106.3 FL (80.0-97.0); Mean Platelet Volume 10.3 FL (9.5-12.2); NRBC Per 100 WBC 0 X 10*3/uL (0.00-0.01); Platelet Count 254 X 10*3/uL (140-440); RBC 3.64 X 10*6/uL (4.10-5.20); RDW 13.5 % (11.5-14.5); WBC 8.02 X 10*3/uL (4.50-10.00)
[2023-11-10 21:27] LABS: ALT 14 U/L (8-44); AST 29 U/L (13-35); Albumin 4.5 g/dL (3.8-4.9); Alkaline Phosphatase 80 U/L (41-126); BUN/Creat Ratio 12.45 Ratio (12.00-20.00); Blood Urea Nitrogen 13.7 mg/dL (9.0-27.0); Calcium 9.8 mg/dL (8.7-10.3); Carbon Dioxide 28.4 mmol/L (21.6-31.8); Chloride 97 mmol/L (96-109); Globulin 2.5 g/dL (1.6-3.3); Glucose 100 mg/dL (70-110); Potassium 3.9 mmol/L (3.5-5.5); Sodium 138 mmol/L (135-145); Total Bilirubin 1.1 mg/dL (0.3-1.2)
[2023-11-10 21:52] LABS: INR <0.93 sec (0.93-1.11)
== END | disposition home or self-care (01) ==
LOC: LABWHC1 13:57
PROVIDERS: ATTEND Orthopaedic Surgery
DX: Z01.812 Encounter for preprocedural laboratory examination (principal)
CPT/HCPCS: 36415; 80053; 82306; 85027; 85610; 86850; 86900; 86901; 87070

== ENCOUNTER 2023-11-15 06:13 | Day surgery (SDC) | payer MEDICARE, BC ==
[2023-11-15] MEDS ORDERED: ONDANSETRON 4 MG/2 ML VIAL IVP ONE (06:18)
[2023-11-15] MEDS ORDERED: DEXAMETHASONE SOD PHOSPHATE 4 MG/ML 1 ML VIAL IV ONE (06:18)
[2023-11-15] MEDS ORDERED: LACTATED RINGERS 1,000 ML IV SCH (06:18)
--- NOTE | 2023-11-15 06:43 | P.HPOR ---
History of Present Illness H&P Date: 11/08/23 .D:Date: 11/08/23 : 02:29pm .T:Title: *[facility] History and Physical Date of :[birth year] R14 Allergies: Age: 73 year Height: 5' Weight: 107 lbs BMI: 20.90 kg/m2 Occupation: Retired VAS: 6 Hand:Right DOI: 08/30/2023 (fall) / DOS: N/A / DOT: 2 weeks CHIEF COMPLAINT: Low back pain TODAY'S VISIT: Today Ms. Pantoja returns to the office today for re- evaluation of her low back pain. She continues to have bad back pain that is unrelenting. She continues to have difficulty with her ADLs secondary to pain. Brace, meds, rest, ice have only been temporary fixes for her and she states she is ready for a permanent fix. We discussed multiple different nonsurgical and surgical options. She is ready to proceed as outlined surgically. 09/23/23: Today Ms. Pantoja presents to the office for evaluation of her low back pain. The patient states that on 08/30/2023 she experienced a fall at home. She was seen at [facility] emergency department on 09/06/2023 following the fall where CT scans of the thoracic and lumbar spine were performed. Today, the patient reports experiencing a constant, ache-like pain throughout the low back that radiates down into the coccygeal region. The patient denies experiencing any radiating pain down into the bilateral lower extremities. She denies experiencing any numbness or tingling. The patient denies experiencing any other falls since 08/30/2023. She states that her current symptoms are exacerbated by prolonged standing or walking. She reports experiencing mild sleep disturbances related to her ongoing pain and associated symptoms. She has trialed conservative measures in the form of lumbar injections at [facility]. The patient denies trialing any other conservative measures at this time. The patient is currently taking Laurel and Tylenol for relief of her current symptoms. Otherwise, she denies experiencing any f/c/sob, loss of bowel/bladder control, or perineal numbness/tingling. The patient ambulates with the use of a walker today while wearing a brace around the mid and low back. The patient is currently taking Laurel and Tylenol for relief of her current symptoms. Otherwise, she denies experiencing any f/c/sob, loss of bowel/bladder control, or perineal numbness/tingling. The patient ambulates with the use of a walker today while wearing a brace around the mid and low back. HISTORY: Imaging: New xrays taken in office Trauma: Yes (fall) Work Related: No Activity Modification: Yes PT: No Home Exercise: No Medications:Yes; List: Laurel & Tylenol Alternative Interventions: Chiropractic:No Massage therapy:No R.I.C.E:Yes Brace:No Injections:Yes How many? 1-2 Did they help? No RFA:No The patients' past social, medical, family, surgical history, as well as review of systems, have been reviewed. Please refer to the Neurosurgery History and Physical form that has been scanned in to our electronic medical record system. 16 points review of systems completed and as stated in HPI, all other systems reviewed are negative. Social History: Reviewed, see appropriate section of the chart for details. Family History: Reviewed, see appropriate section of the chart for details. P2 Past Medical History: Reviewed, see appropriate section of the chart for details. Current Medications: P1Rx: amLODIPine 5 mg tablet Ref: 0 Rx: aspirin 81 mg tablet,delayed release Ref: 0 Rx: isosorbide mononitrate ER 30 mg tablet,extended release 24 hr Ref: 0 Rx: lisinopriL 20 mg tablet Ref: 0 Rx: metoprolol succinate ER 50 mg tablet,extended release 24 hr Ref: 0 Rx: Laurel Ref: 0 Rx: pantoprazole 40 mg tablet,delayed release Ref: 0 Rx: potassium chloride ER 10 mEq capsule,extended release Ref: 0 Rx: rosuvastatin 20 mg tablet Ref: 0 Rx: Trelegy Ellipta 200 mcg-62.5 mcg-25 mcg powder for inhalation Ref: 0 Rx: TylenoL Ref: 0 PHYSICALEXAMINATION: General:Awake, alert, appropriate for age, in no acute distress. HEENT:No unusual neck masses around region of lateral neck triangle, thyroid, supraclavicular groove Extremities:Skin warm and dry without acute lesions, coloration, temperature, skin intact, no tenderness or erythema Integument: Hairy patches:ABSENT Dorsal skin dimples:ABSENT Cafe au lait spots:ABSENT Surgical incisions: None Palpation: Please see Pain drawing on Intake sheet for further detail. Midline spinal tenderness: No E6 Cervical Tenderness: No E6 Paralumbar tenderness: YES E6 Parathoracic tenderness: YES E6 Buttocks tenderness: No E6 SI Testing:NO POSTURAL and MUSCULO-SKELETAL EVALUATION: Coronal Balance: NEUTRAL Recumbent testing: Patient isable to lay flat on back Sagittal Balance: NEUTRAL Shoulder Profile: LEVEL Pelvic Girdle: LEVEL Neck ROM:UNRESTRICTED Lumbar ROM: RESTRICTED Shoulder ROM:Symmetrical Hip ROM:Symmetrical Knee ROM:Symmetrical Hands: Normal appearance, symmetrical Feet: Normal appearance, Symmetrical VASCULAR STATUS : LEFT RIGHT Wrist Pulses INTACT INTACT Pedal Pulses (Dors. pedis & post.tibialis) INTACT INTACT Color NORMAL NORMAL Edema Absent Absent NEUROLOGIC EXAMINATION: Mental Status:Awake and alert, fully oriented, with normal attention, concentration and memory, and fluent, appropriate speech. Cranial Nerves: I: Olfactory not tested. II: Visual acuity normal, no visual field deficit noted with confrontation. III,IV: Normal pupillary reflexes & intact extraocular movements without nystagmus. V,: Intact symmetrical facial sensation. VII: Intact symmetrical facial motor movement VIII: Hearing intact. IX,X: Intact gag, swallow, & normal voice. XI: Sternocleidomastoid, trapezius function intact. XII: Tongue midline with normal movements. L'hermitte's Sign:Negative / absent Spurling'Sign:Absent bilaterally. Cubital percussion test:Absent bilaterally. Jacobson-Tinel sign - Carpal region:Absent bilaterally. Straight Leg Raising:Absent bilaterally. Crossed straight leg raise: negative MOTOR EXAM (0-5/5, N/T) Muscle appearance:Symmetrical, without signs of atrophy or dystrophy UPPER EXTREMITY RIGHT LEFT Shoulder Abduction 5 5 Biceps 5 5 Triceps 5 5 Wrist Extension 5 5 Hand Intrinsic 5 5 Supervisor [employer] 5 5 Hand and finger dexterity intact bilaterally? yes Disdiadochokinesis examination negative bilaterally? yes LOWER EXTREMITY RIGHT LEFT Hip Flexion 4+ 4+ Knee Extension 4+ 4+ Knee Flexion 4+ 4+ Dorsiflexion 4+ 4+ Plantarflexion 4+ 4+ EHL 4+ 4+ FHL 4+ 4+ Toe heel walk / heel-toe walk intact while maintaining satisfactory balance? yes Squatting/straightening w/o assistance to a min of 60 degree knee flexion? yes Single leg stance:Intact Trendelenburg sign negative bilaterally REFLEXES(0-4/2, NT)Upper Extremity Lower Extremity Right 2 2 Left 2 2 Pathological Reflexes RIGHT LEFT Jacobson's Absent Absent Clonus Absent Absent Babinski Absent Absent Sensory system (0-4, N/T) Test type RU USHA RL LL Joint-Position 2 2 2 2 Vibration 2 2 2 2 Pain & LT sense 2 2 2 2 Dermatomal Deficit: None None L3-4 None Gait and Functional Evaluation: Ambulatory aids:Walker Romberg's test:Intact bilaterally Steady Gait RADIOGRAPHIC STUDIES: XRay Lumbar and Thoracic (AP, Lateral) with 4 views taken at [facility] on 09/23/23: Moderate to severe spondylitic and degenerative changes with levoconvex scoliosis present. Age indeterminate T11 compression fracture that has progressed from previous CT image on 09/06/2023 to 40% compression. No acute osseous abnormalities. CT [facility] of Thoracic and LumbarSpine: IMPRESSION: 1. Age-indeterminate anterior wedge compression deformity the T12 vertebral body with approximately 10% height loss and no retropulsion. Correlate with point tenderness. 2. Left paracentral disc herniations resulting in mild central canal stenosis at T7-T8 and T8-T9. Additional multilevel degenerative disc disease as described above. 3. Levoscoliotic curvature of the thoracolumbar spine. IMPRESSION: It was my pleasure to have seen and examined Mary. I reviewed the patient's clinical syndrome, physical findings, and imaging studies during the appointment today. It is my impression that the patient has a diagnosis of. 1. Levoconvex scoliosis 2. T11 compression fracture 3. Lumbar spondylosis I outlined the natural course history without intervention and various interventional options. PLAN: Based on my findings I suggest the following course of action: -I have discussed the options of proceeding with continued conservative measures verus operative treatment. I have discussed the option of surgical intervention in the form of a T11 kyphoplasty versus ORIF with stabilization. Presently, the patient states that she would like tis discussed more with her daughter, who I will call and further describe the procedure. The patient will make a more definitive decision regarding future treatment after her daughter is contacted. -I have sent a prescription to the patient's pharmacy today for Flexeril 5 mg. -Advised patient to continue with supplements, health maintenance, and home exercise programs. Patient expressed understanding and will continue with these modalities. - I have provided the patient with a script today for a Zynex TLSO brace. - Ambulate daily. - Take medications as directed. - Ice and rest for pain and swelling control. Spine Surgery Risk Review Ms. Pantoja is presenting for evaluation of low back pain. It was my pleasure to have seen and examined Ms. Pantoja. In our visit today we have had a chance to go over subjective complaints, physical examination findings and treatments including the natural course history without intervention and various interventional options. The patients imaging demonstrates: T11 VCF 40% compression with no retropulsion. On physical exam, Ms. Pantoja demonstrates: Midline and paraspinal TTP over T11 and T12. Difficulty with ambulation secondary to pain and difficulty with ADLs secondary to pain in back I have explained to the patient that as their condition progresses it will cause further neurological deficits and eventual paralysis. Based on the patients imaging, physical exam, and the rapid progression and disabling nature of their symptoms, at this time I recommend surgery in the form of a: T11 kyphoplasty with biopsy BACKSURGT.... I discussed the risk and benefits of this procedure at length with Ms. Pantoja. The patient [significant other] agreed to considered pursuing the procedure abovementioned. Prior to surgery, she should follow up with her PCP (Cardio, ID, IM etc) for clearance. Questions were invited and answered, and the patient wishes to proceed as outlined below. Currently, I am recommendin.T11 Biopsy with kyphoplasty 2.Follow up with PCP for surgical clearance 3.Review of surgical risks and benefits as well as an educational packet on the proposed surgical procedure. Risks: All surgical procedures come with inherent risks, including those related to positioning, anesthesia, intraoperative findings, and postoperative complications. It is important to understand that surgery does not come with any guarantee of a successful outcome as complications and adverse events are always possible. The patient was given a handout in office today discussing the surgical procedure and risks associated with the intervention, both of which were discussed with the patient. These risks include but are not limited to the following: * Experiencing same, different or even worse symptoms in back, neck, arms, or legs compared to before surgery. Requiring further surgery or other forms of treatment presently or at some time in the future at same or other levels of the intended spine surgery. On an extreme but fortunately relatively rare basis severe complication such as blindness, stroke, heart attack, temporary and/or permanent nerve injury, paralysis, coma, or may occur, sometimes without known explanation. Surgical complications may include but are not limited to risk of infection, fluid accumulation in the surgical dissection site, including a serom a or hematoma, that requires additional surgery, wound drainage, bleeding, new numbness or weakness, vision changes/loss, spinal fluid leakage, non-healing and/or infected incision, headaches, difficulty or inability to swallow, hoarseness, hemopneumothorax, pneumothorax, impotence, retrograde ejaculation, vaginal dryness; injury to nerves, spinal cord, blood vessels, lymphatics or other vital organs (i.e., bowel injury, injury to the great vessels); heterotopic bone formation; complications related to the hardware such as screws, rods, cages including misplaced hardware, device failure, instr umentation at the wrong spine level, hardware fracture/breakage, or hardware loosening; vertebral failure of the spinal column above or below the newly placed hardware; retained surgical instrumentations or devices and the need for further surgery. * Medical risks of the planned spine surgery include but are not limited to generalized Infections to the whole body or local areas outside of the surgical site (sepsis), heart attack, bleeding, anaphylaxis, meningitis, seizure, epilepsy, hearing loss, burn rivera, laceration of the head or other areas of the body, bruising, hypersensitivity of the skin, bladder over distension; allergic reaction; shoulder injury related to positioning; fat, blood and air clots to other areas of the body like heart, lungs, brain; failure of internal organs such as lungs, kidneys, liver and excessive bleeding. If blood transfusions are necessary, note that transfusions may cause intolerance reactions such as anaphylaxis or other complex reactions. Despite best efforts, the results of spine surgery might not heal in terms of bone, soft tissues such as skin, fascia, ligaments, and joints. Additionally, in order to achieve best possible results, spine surgery may be carried out beyond the initially planned levels and involve decompression, fusion including insertion of hardware at levels other than the original intended area of surgical interest change some portions of the procedure in order to ensure the best possible outcomes. With spine surgery and spinal fusion, there are different off label uses of instrumentation (devices, implants and hardware) as well as biological substances (bone morphogenic proteins, demineralized bone matrix) as well as using extra bone from allograft sources (i.e. cadaver bone) or autograft (iliac crest bone, ribs, or the spine itself). The patient has been given information about these practices and their inherent risks and benefits. [facility] is an educational center that serves as a training facility for neurosurgical and orthopedic [employer]PER[employer]END[employer] and Nursing students. Physician assistants are medically trained surgical providers who function in the outpatient, inpatient, and operating room setting under the direct supervision of the attending surgeon. [facility] has multiple operating rooms with single and overlapping rooms running daily. They currently function under the required guidelines as produced by the [facility] Finance Committee with regards to the overlapping rooms and will continue to comply with changes to this policy as they occur. The requirements include and are complied with as follows: (1) the critical portions of the overlapping rooms will not occur at the same time, (2) the attending physician will be physically present during the critical portions of the procedure and immediately available during the entire case, and (3) a back-up attending is designated should the primary attending not be immediately available. The patient has had a chance to review all the listed information, has been given print outs detailing this information, and has had all his/her questions answered to their satisfaction. It was my pleasure to have seen and examined Ms. Pantoja. In our visit today we have had a chance to go over my understanding of our patient's current condition, the natural course history without intervention and various interventional options. Questions were invited and answered, and the patient wishes to proceed as outlined above. I have seen and examined the patient for 25 minutes and we have spent more than 50% of the time in repeat and detailed counseling about the patient's condition, its natural course history with out and as much as can be predicted with surgery and re-review of various surgical treatment options. In conclusion, Ms. Pantoja and [his/her spouse/partner] requested we proceed with the above suggested surgery and are willing to accept risks and limitations of the suggested surgery as nature of the disease process and our best attempts at treatment for the condition. Thank you again for allowing us to be part of your patient's care. Please don't hesitate to contact me if you have any further questions. Follow- up: DEL F/U... 1month 6wks 3 months 6 months 1 year POSTOP Patient Education: (Informational booklet, instructions, etc) given at today's appointment: DAMARI Yes Plan at next visit: DAMARI xip xop X-ray oop Medications Reviewed: YES In our visit today Ms. Pantoja and I have had a chance to go over my understanding of the patient's current condition, the natural course history without intervention and various interventional options. Questions were invited and answered, and the patient wishes to proceed as outlined above. I will be sure to keep you updated afterMsItzel Pantoja returns here for further follow-up. Thank you again for your referral. Please do not hesitate to contact me if you have any further questions. Signed and authenticated by: Collins Velasquez [facility] [address] [place] [id number] This message is confidential, intended only for the named recipient(s) and may contain information that is privileged or exempt from disclosure under applicable law. If you are not the intended recipient(s), you are notified that the dissemination, distribution or copying of this information is strictly prohibited. If you received this message in error, please notify the sender then delete this message. SCRIBE SIGN CC: DEL REFDR... Past Medical History Past Medical History: Asthma, Coronary Artery Disease (CAD), GERD/Reflux, Hyperlipidemia, Hypertension, Osteoarthritis (OA) Additional Past Medical History / Comment(s): UTIs, History of Any Multi-Drug Resistant Organisms: MRSA Date of last positivie culture/infection: 2009 MDRO Source:: R arm Past Surgical History: Breast Surgery, Heart Catheterization With Stent Additional Past Surgical History / Comment(s): Approximately 2007 had 2 coronary stents placed at [facility], L foot surgery for bunion EGD/colonoscopy with polypectomy-benign, R breast bx x 2-benign, cataracts removed bilaterally. "neck surgery" in [place] screws and bolts in neck Past Anesthesia/Blood Transfusion Reactions: No Reported Reaction Date of Last Stent Placement:: 2007? Smoking Status: Current every day smoker - Past Family History Father Additional Family Medical History / Comment(s): Father "young" due to alcoholism. Mother Additional Family Medical History / Comment(s): Mother of a "blood clot in her heart" in her 60's. Medications and Allergies Home Medications Medication Instructions Recorded Confirmed Type Rosuvastatin Calcium [Crestor] 20 mg PO HS 08/04/16 11/09/23 History LORazepam [Ativan] 1 mg PO DAILY 09/21/17 11/09/23 History Pantoprazole [Protonix] 40 mg PO DAILY PRN 09/21/17 11/09/23 History amLODIPine BESYLATE [Norvasc] 5 mg PO DAILY 09/21/17 11/09/23 History Albuterol Inhaler [Ventolin Hfa 2 puff INHALATION RT-QID PRN 03/09/18 11/09/23 History Inhaler] lisinopriL [Zestril] 20 mg PO BID 03/11/22 11/09/23 History HYDROcodone/APAP 5-325MG [Laurel 1 tab PO Q6HR PRN 04/02/23 11/09/23 History 5-325] Isosorbide Mononitrate [Isosorbide 30 mg PO DAILY 04/02/23 11/09/23 History Mononitrate ER] Potassium Chloride [K-Tab ER] 10 meq PO DAILY 04/02/23 11/09/23 History Albuterol Nebulized [Ventolin 2.5 mg INHALATION RT-QID PRN 09/06/23 11/09/23 History Nebulized] Aspirin EC [Ecotrin Low Dose] 81 mg PO DAILY 09/06/23 11/09/23 History Butalb/APAP/Caff 50-325-40Mg 1 tab PO BID PRN 09/06/23 11/09/23 History [Fioricet 50-325-40] Diclofenac Sodium Gel [Voltaren 1% 1 applic TOPICAL QID PRN 09/06/23 11/09/23 History Gel] Fluticasone/Umeclidin/Vilanter 1 puff INHALATION RT-DAILY 09/06/23 11/09/23 History [Trelegy Ellipta 200-62.5-25] Lidocaine 5% Patch [Lidoderm] 1 patch TOPICAL DAILY 09/06/23 11/09/23 History Ondansetron [Zofran] 4 mg PO Q12HR PRN 09/06/23 11/09/23 History Risedronate Sodium 150 mg PO Q30D 09/06/23 11/09/23 History Allergies Allergy/AdvReac Type Severity Reaction Status Date / Time bee venom protein (honey bee) Allergy Severe Anaphylaxis Verified 11/09/23 15:26 Physical Examination Osteopathic Statement: *. No significant issues noted on an osteopathic structural exam other than those noted in the History and Physical/Consult.
[2023-11-15] MEDS ORDERED: LIDOCAINE 1% (10MG/ML) FOR IV START INTRADERMA ONE (07:00)
[2023-11-15] MEDS ORDERED: MIDAZOLAM 2 MG/2 ML VIAL IV PRN (07:00)
[2023-11-15] MEDS ORDERED: HYDROmorphone 0.5 MG/0.5 ML SYRINGE IVP PRN (07:00)
[2023-11-15] MEDS ORDERED: MIDAZOLAM 2 MG/2 ML VIAL ONE (07:24)
[2023-11-15] MEDS ORDERED: LIDOCAINE 1% INJ 10MG/ML (20 ML MDV) ONE (07:24)
[2023-11-15] MEDS ORDERED: SUCCINYLCHOLINE CHLORIDE 200 MG/10 ML VIAL IV ONE (07:24)
[2023-11-15] MEDS ORDERED: GLYCOPYRROLATE 0.2 MG/ML 2 ML VIAL ONE (07:24)
[2023-11-15] MEDS ORDERED: PROPOFOL 10 MG/ML 20 ML VIAL IV ONE (07:24)
[2023-11-15] MEDS ORDERED: ROCURONIUM 10 MG/ML (5 ML VIAL) IV ONE (07:24)
[2023-11-15] MEDS ORDERED: NEOSTIGMINE 1 MG/ML 10 ML VIAL ONE (07:24)
[2023-11-15] MEDS ORDERED: fentaNYL (PF) 50 MCG/ML 2 ML AMP ONE (07:24)
[2023-11-15] MEDS ORDERED: ACETAMINOPHEN TAB 500 MG TAB ONE (07:25)
[2023-11-15] MEDS ORDERED: GABAPENTIN 300 MG CAP PO ONE (07:28)
[2023-11-15] MEDS ORDERED: ACETAMINOPHEN TAB 500 MG TAB PO ONE (07:28)
[2023-11-15] MEDS ORDERED: SODIUM CHLORIDE 0.9% 50 ML with ceFAZolin 2,000 MG IV ONE ×2 (07:29)
[2023-11-15] MEDS ORDERED: LIDOCAINE 2%-EPI 1:100,000 20 ML VIAL SQ ONE (08:01)
[2023-11-15] MEDS ORDERED: BUPIVACAINE (PF) 0.5% 30 ML VIAL SQ ONE (08:02)
[2023-11-15] MEDS ORDERED: LACTATED RINGERS 1,000 ML IV ONE (08:30)
--- NOTE | 2023-11-15 08:37 | P.OP ---
Date of Procedure: 11/15/23 Preoperative Diagnosis: T11 vertebral compression fracture, wedged 40-45% compressed, no retropulsion with local kyphosis Postoperative Diagnosis: T11 vertebral compression fracture, wedged 40-45% compressed, no retropulsion with local kyphosis Procedure(s) Performed: T11 biopsy with kyphoplasty Implants: arnoldo cement Anesthesia: GETA Surgeon: Collins Monroe Estimated Blood Loss (ml): 5 IV fluids (ml): 500 Urine output (ml): 0 Pathology: other (T11 vertebral body) Condition: stable Disposition: PACU Indications for Procedure: Ms. Pantoja is presenting for evaluation of low back pain. It was my pleasure to have seen and examined Ms. Pantoja. In our visit today we have had a chance to go over subjective complaints, physical examination findings and treatments including the natural course history without intervention and various interventional options. The patients imaging demonstrates: T11 VCF 40% compression with no retropulsion. On physical exam, Ms. Pantoja demonstrates: Midline and paraspinal TTP over T11 and T12. Difficulty with ambulation secondary to pain and difficulty with ADLs secondary to pain in back I have explained to the patient that as their condition progresses it will cause further neurological deficits and eventual paralysis. Based on the patients imaging, physical exam, and the rapid progression and disabling nature of their symptoms, at this time I recommend surgery in the form of a: T11 kyphoplasty with biopsy BACKSURGT.... I discussed the risk and benefits of this procedure at length with Ms. Pantoja. The patient [significant other] agreed to considered pursuing the procedure abovementioned. Prior to surgery, she should follow up with her PCP (Cardio, ID, IM etc) for clearance. Questions were invited and answered, and the patient wishes to proceed as outlined below. Currently, I am recommendin.T11 Biopsy with kyphoplasty Description of Procedure: Thoracic 11 Kyphoplasty The patient was seen and examined in the preoperative area. All preoperative protocols were followed. Informed consent was obtained, risks and benefits of the procedure were discussed at length. Risks including bleeding infection damage to the surrounding tissue and risk of reoperation were discussed with the patient. Risk of anesthesia up to and including was discussed with the patient. These are outlined in the risk review. They were willing to accept these risks and all the risks of surgery. The patient was given a weight-based dose of antibiotics in the form of 2 g Ancef. The patient was seen and ev aluated by the anesthesia team who deemed them fit for surgery. The site was marked, the patient was willing to proceed with the procedure. The patient was transferred to the operative suite by the Department of anesthesia. They were then drifted off to sleep by the department anesthesia and GETA was performed. The patient tolerated this well. Once confirmation of lines and ventilation the patient was transferred to a prone Ash table very carefully. All bony prominences including wrists, elbows, axilla, chest, hips, and thighs, and feet were padded very well. Special attention was paid to the genitalia, and these were padded accordingly. SCDs were placed on bilateral lower extremities and were connected. Arms were well padded and placed on arm boards up and out in the 90/90 position. Once in position, again we confirmed good ventilation capabilities and that lines were running appropriately. The patients Lumbar spine was then exposed. 1010s were placed outlining the inci viola site. Standard alcohol was used to clean the incision site and allowed to dry. C-arm was used to needle localize the pedicles at T11 and bio-samy the patient and confirm level for incision which was marked with a skin marker. Operative briefing was performed with all teams and everyone in agreement to proceed. The patient was then prepped and draped in a normal sterile fashion. Timeout was then performed, and all parties agreed with the procedure to be performed. Skin chavez was made. Jamshitdi was passed into the T11 vertebral body via the pedicle. This was done with biplane fluoroscopy. Once in good position in the body the trochar is removed. Biopsy needle was passed into the body and a biopsy was taken. Drill was then passed and biopsy material taken from drill as well. Curette then used to reduce endplate and create more space. Balloon was then passed an inflated which showed good reduction of endplate on AP and Lateral and confirmed central placement. The cement was then placed and pt remained stable. Good fill of cement was seen without extravasation. Once good fill, the Jamshedi was removed and the wound irrigated. The skin was closed with a simple stitch and dressed with a bandaid. The patient was then transferred off the table back to their hospital bed a- traumatically. They were extubated by the department of anesthesia. They were then transferred to PACU in stable condition having tolerated the procedure with no complications.
--- NOTE | 2023-11-15 08:43 | FL ---
EXAMINATION TYPE: FL guidance operating room, XR thoracic spine 2V Intraoperative/procedural fluorosc opic services were provided. Total fluoroscopy time is 1 minute 2 seconds with a total of 6 submitted images to PACS. Please see the operative/procedural note for further details. DAP: 3.0777 Gycm2
[2023-11-15 08:56] VITALS: TEMP 97.4
[2023-11-15 10:10] VITALS: BP 123/69; PULSE 72; RESP 18
== END 2023-11-15 10:14 | disposition home or self-care (01) ==
LOC: OR 06:13
PROVIDERS: ATTEND Orthopaedic Surgery
DX: S22.080A Wedge compression fracture of T11-T12 vertebra, initial encounter for closed fracture (principal); I10 Essential (primary) hypertension; G47.00 Insomnia, unspecified; I25.10 Atherosclerotic heart disease of native coronary artery without angina pectoris; J45.909 Unspecified asthma, uncomplicated; K21.9 Gastro-esophageal reflux disease without esophagitis; M47.816 Spondylosis without myelopathy or radiculopathy, lumbar region; M48.04 Spinal stenosis, thoracic region; E78.5 Hyperlipidemia, unspecified; F17.200 Nicotine dependence, unspecified, uncomplicated; Z91.030 Bee allergy status; Z95.5 Presence of coronary angioplasty implant and graft; X58.XXXA Exposure to other specified factors, initial encounter
CPT/HCPCS: 22513; 88307; 72070; J2250; J0330; J1100; J2710; J2405; J0690; J2001; J3010; J2704; J0665

== ENCOUNTER → 2024-05-03 | Outpatient (CLI) | payer MEDICARE, BC ==
--- NOTE | 2024-05-11 21:39 | MM ---
Reason for Exam: Screening (asymptomatic). Last mammogram was performed 1 year(s) and 1 month(s) ago. Patient History: Menarche at age 16. First Full-Term at age 20. Postmenopausal. 1996, Benign Excisional Biopsy on the right side. 2001, Benign Excisional Biopsy on the right side. 03/03/2017, Benign Core Biopsy on the left side. Maternal aunt had breast cancer, age 50. Mother had breast cancer, age 50. Risk Values: Ada 5 year model risk: 4.5%. NCI Lifetime model risk: 11.3%. Prior Study Comparison: 10/11/2020 Bilateral Screening Mammogram, [facility]. 04/15/2022 Bilateral MG 3D screening mammo w/cad, [facility]. 04/16/2023 Bilateral MG 3D screening mammo w/cad, [facility]. Tissue Density: The breasts are heterogeneously dense, which may obscure small masses. Findings: Analyzed By CAD. Unchanged bilateral asymmetric densities. Postexcisional scar redemonstrated on the right. Benign oil cyst and secretory calcifications. There is no suspicious group of microcalcifications or new suspicious mass in either breast. Overall Assessment: Benign, BI-RAD 2 Management: Screening Mammogram of both breasts in 1 year. See note below in regards to the patient's increased 5 year Ada score. Patient should continue monthly self-breast exams. A clinical breast exam by your physician is recommended on an annual basis. This exam should not preclude additional follow-up of suspicious palpable abnormalities. Note on Ada scores and lifetime risk: 1. A Ada score greater than 3% is considered moderate risk. If this is the case, consider specialist referral to assess eligibility for a risk reducing agent. 2. If overall lifetime risk for the development of breast cancer is 20% or higher, the patient may qualify for future screening with alternating mammogram and breast MRI. Electronically signed and approved by: Edie Benavidez M.D. Radiologist
--- NOTE | 2024-05-15 15:12 | CTL ---
EXAMINATION TYPE: CT Low Dose Lung DATE OF EXAM ORDERED: 05/03/2024 HISTORY: 73-year-old female [id number]. Lung cancer screening, current smoker with 40 pack-year history CT DLP: 61.[address] CTDI: 1.9 mGy Automated exposure control for dose reduction was used. SCREENING VISIT: Annual follow-up COMPARISON: 04/02/2023 TECHNIQUE: Low dose computed tomography scan was performed through the chest at 1 mm thick sections a nd reconstructed images in multiple planes at 1 mm and [address] DIAGNOSTIC QUALITY: Satisfactory FINDINGS: Heart is upper limits of normal in size without pericardial effusion. Extensive three-vessel coronary artery calcifications are present. Mild atherosclerotic arch calcifications with conventional arch vessel branching anatomy. No thoracic lymphadenopathy by CT size criteria. Mild emphysematous change. Mild diffuse bronchial wall thickening. Bandlike areas of scarring and ate lectasis in lower lungs. Some chronic pleural-parenchymal thickening at the posteromedial left base. 4 mm medial left lower lobe pulmonary nodule, axial image 164, unchanged. No suspicious pulmonary nod ules are seen. Visualized upper abdomen shows no gross abnormality. Bones: Previous vertebroplasty change T12. IMPRESSION: 1. LungsRADS 2, benign. Stable 4 mm left lower lobe pulmonary nodule. 2. COPD with mild emphysema and prominent areas of scarring/atelectasis in the lower lungs. Recommend smoking cessation. 3. Extensive three-vessel coronary artery calcifications. CT LUNG RAD AND CT CHEST RECOMMENDATION: Lung-Rad 2 Benign Appearance or Behavior: Continue annual sc reening with LDCT in 12 months. S Modifier (other clinically significant findings): None
== END | disposition home or self-care (01) ==
LOC: RADMAMWWP 14:39
PROVIDERS: ATTEND Family Medicine
DX: Z12.31 Encounter for screening mammogram for malignant neoplasm of breast (principal); R91.1 Solitary pulmonary nodule; Z12.2 Encounter for screening for malignant neoplasm of respiratory organs; J44.9 Chronic obstructive pulmonary disease, unspecified; R92.333 Mammographic heterogeneous density, bilateral breasts; J43.9 Emphysema, unspecified; I25.10 Atherosclerotic heart disease of native coronary artery without angina pectoris; F17.210 Nicotine dependence, cigarettes, uncomplicated; Z78.0 Asymptomatic menopausal state; Z80.3 Family history of malignant neoplasm of breast
CPT/HCPCS: 71271; 77063; 77067

== ENCOUNTER → 2024-05-17 | Outpatient (CLI) | payer MEDICARE, BC ==
[2024-05-17 18:44] LABS: HCT 37.7 % (37.2-46.3); HGB 12.2 g/dL (12.0-15.0); MCH 34.6 pg (27.0-32.0); MCHC 32.4 g/dL (32.0-37.0); MCV 106.8 FL (80.0-97.0); Mean Platelet Volume 10.4 FL (9.5-12.2); NRBC Per 100 WBC 0 X 10*3/uL (0.00-0.01); Platelet Count 219 X 10*3/uL (140-440); RBC 3.53 X 10*6/uL (4.10-5.20); RDW 14.1 % (11.5-14.5); WBC 11.68 X 10*3/uL (4.50-10.00)
[2024-05-17 19:16] LABS: Basophils # (A) 0.03 X 10*3/uL (0.00-0.10); Basophils % (A) 0.3 %; Eosinophils # (A) 0.19 X 10*3/uL (0.04-0.35); Eosinophils % (A) 1.6 %; Lymphocytes # (A) 1.23 X 10*3/uL (0.90-5.00); Lymphocytes % (A) 10.5 %; Macrocytosis (M) 2+; Monocytes # (A) 1.07 X 10*3/uL (0.20-1.00); Monocytes % (A) 9.2 %; Neutrophils # (A) 9.11 X 10*3/uL (1.80-7.70)
[2024-05-17 19:40] LABS: Blood Urea Nitrogen 11.7 mg/dL (9.0-27.0); Chloride 98 mmol/L (96-109); Chol/HDL Ratio 1.44 Ratio; Glucose 95 mg/dL (70-110); LDL Cholesterol,Calculated 33.8 mg/dL (0.0-131.0); Potassium 4.4 mmol/L (3.5-5.5); Sodium 136 mmol/L (135-145)
[2024-05-17 19:41] LABS: ALT 13 U/L (8-44); AST 21 U/L (13-35); Albumin 4.4 g/dL (3.8-4.9); Alkaline Phosphatase 70 U/L (41-126); Bilirubin, Conjugated 0.53 mg/dL (0.20-0.40); Bilirubin,Unconjugated 0.97 mg/dL (0.20-1.00); Calcium 9.2 mg/dL (8.7-10.3); Carbon Dioxide 24.2 mmol/L (21.6-31.8); Globulin 2.2 g/dL (1.6-3.3); Total Bilirubin 1.5 mg/dL (0.3-1.2); Total Protein 6.6 g/dL (6.2-8.2)
== END | disposition home or self-care (01) ==
LOC: LABWHC1 12:25
PROVIDERS: ATTEND Internal Medicine Cardiovascular Disease
DX: I10 Essential (primary) hypertension (principal); I25.10 Atherosclerotic heart disease of native coronary artery without angina pectoris; E78.2 Mixed hyperlipidemia; E87.6 Hypokalemia; M85.9 Disorder of bone density and structure, unspecified
CPT/HCPCS: 36415; 80053; 80061; 82248; 82306; 84443; 85025

== ENCOUNTER → 2024-09-08 | Outpatient (CLI) | payer MEDICARE, BC ==
--- NOTE | 2024-09-08 13:55 | CT ---
EXAMINATION TYPE: CT cervical spine wo con CT DLP: 259 mGycm, Automated exposure control for dose reduction was used. DATE OF EXAM: 09/08/2024 1:41 PM COMPARISON: None. CLINICAL INDICATION:Female, 74 years old with history of M54.12 RADICULOPATHY M54.2 CERVICALGIA; PHH, Radiculopathy, cervicalgia prior sx TECHNIQUE: Axial CT images from the skull base to the inferior aspect of T2 we obtained without intra venous contrast. Coronal and sagittal reformatted images were also reviewed. FINDINGS: Fracture: No acute fracture. Chronic appearing anterior wedge compression deformity involving the ant erosuperior endplates of the T1 vertebral body with approximately 20% height loss anteriorly. No retr opulsion. Osseous structures: Postsurgical changes with posterior cervical fusion involving C1 through C4. Bila teral pedicular screws identified extending through C1. Bilateral facet joint screws identified at C3 -C4. Additional fixation hardware with laminectomy defects involving the right C3-C6. Hardware appear s intact with appropriate alignment. Hardware creates streak artifact which limits evaluation. Vertebral alignment: Mild retrolisthesis of C3 on C4 and C4 on C5. Spinal canal/Neural Foramina: Posterior disc osteophyte complexes at C3-C4, C4-C5, C5-C6, C6-C7 No gr oss evidence of significant central canal stenosis within limitations from streak artifact. Mild left neural foraminal stenosis at C3-C4. Mild right and moderate left neural foraminal stenosis at C4-C5. Moderate bilateral neural foraminal stenosis at C5-C6. Neck soft tissues: Prevertebral soft tissues are within normal limits. Other: The airway is patent. The lung apices are clear. Bilateral carotid bulb calcifications. IMPRESSION: 1. No evidence of acute cervical spine fracture. 2. Chronic-appearing anterior wedge compression deformity of the T1 vertebral body with approximately 20% height loss and no retropulsion. 3. Postsurgical changes involving C1-C6 as described above. Hardware appears intact. This creates str eak artifact which limits evaluation. 4. Moderate multilevel degenerative disc disease and facet arthropathy described above. [facility], , 09/08/2024 1:53 PM
--- NOTE | 2024-09-08 14:57 | XR ---
EXAMINATION TYPE: XR cervical spine limited DATE OF EXAM: 09/08/2024 1:12 PM COMPARISON: CT same day CLINICAL INDICATION: Female, 74 years old with history of M54.2; PHH TECHNIQUE: The cervical spine was imaged in frontal, lateral, and odontoid. FINDINGS: Fixation hardware throughout the cervical spine appears intact. The osseous structures show normal alignment without evidence of an acute fracture. There are osteoph ytes noted throughout the cervical spine on the anterior and lateral aspects of the vertebral bodies. The intervertebral disk spaces are narrowed at multiple levels Pedicles are intact. Soft tissues ar e within normal limits. The odontoid appears intact. IMPRESSION: 1. No fracture or dislocation. 2. Moderate to severe lower cervical spine degenerative disc. 3. Fixation hardware appears intact. [facility], , 09/08/2024 2:55 PM
== END | disposition home or self-care (01) ==
LOC: RADCTMAIN 12:41
PROVIDERS: ATTEND Orthopaedic Surgery
DX: M50.10 Cervical disc disorder with radiculopathy, unspecified cervical region (principal); M48.54XA Collapsed vertebra, not elsewhere classified, thoracic region, initial encounter for fracture; M99.71 Connective tissue and disc stenosis of intervertebral foramina of cervical region
CPT/HCPCS: 72040; 72125

== ENCOUNTER 2024-09-16 22:45 | Emergency (ER) | payer MEDICARE, BC ==
--- NOTE | 2024-09-16 22:53 | ED ---
General Adult HPI - General Stated complaint: Fall - Head Injury Time Seen by Provider: 09/16/24 22:52 - History of Present Illness Initial comments: Is a pleasant 74-year-old female presents to the emergency department today via private vehicle for evaluation of a laceration to the back of her scalp. Patient reports that she believes her tetanus is up to date due to an injury last year. Patient states that she simply lost her balance today she did not pass out she did not have any palpitation shortness of breath before the incident. She did not have any loss of consciousness after falling. - Related Data Home Medications Medication Instructions Recorded Confirmed Rosuvastatin Calcium [Crestor] 20 mg PO HS 08/04/16 11/15/23 LORazepam [Ativan] 1 mg PO DAILY 09/21/17 11/15/23 Pantoprazole [Protonix] 40 mg PO DAILY PRN 09/21/17 11/15/23 amLODIPine BESYLATE [Norvasc] 5 mg PO DAILY 09/21/17 11/15/23 Albuterol Inhaler [Ventolin Hfa 2 puff INHALATION RT-QID PRN 03/09/18 11/15/23 Inhaler] lisinopriL [Zestril] 20 mg PO BID 03/11/22 11/15/23 HYDROcodone/APAP 5-325MG [[place] 1 tab PO Q6HR PRN 04/02/23 11/15/23 5-325] Isosorbide Mononitrate [Isosorbide 30 mg PO DAILY 04/02/23 11/15/23 Mononitrate ER] Potassium Chloride [K-Tab ER] 10 meq PO DAILY 04/02/23 11/15/23 Albuterol Nebulized [Ventolin 2.5 mg INHALATION RT-QID PRN 09/06/23 11/15/23 Nebulized] Aspirin EC [Ecotrin Low Dose] 81 mg PO DAILY 09/06/23 11/15/23 Butalb/APAP/Caff 50-325-40Mg 1 tab PO BID PRN 09/06/23 11/15/23 [Fioricet 50-325-40] Diclofenac Sodium Gel [Voltaren 1% 1 applic TOPICAL QID PRN 09/06/23 11/15/23 Gel] Fluticasone/Umeclidin/Vilanter 1 puff INHALATION RT-DAILY 09/06/23 11/15/23 [Trelegy Ellipta 200-62.5-25] Lidocaine 5% Patch [Lidoderm] 1 patch TOPICAL DAILY 09/06/23 11/15/23 Ondansetron [Zofran] 4 mg PO Q12HR PRN 09/06/23 11/15/23 Risedronate Sodium 150 mg PO Q30D 09/06/23 11/15/23 Previous Rx's Medication Instructions Recorded HYDROcodone/APAP 7.5-325MG [[place] 1 tab PO Q6HR PRN #21 tab 11/15/23 7.5-325] Sennosides/Docusate Sodium [Senna 1 each PO DAILY #20 capsule 11/15/23 Plus 8.6-50 mg Softgel] Allergies Allergy/AdvReac Type Severity Reaction Status Date / Time bee venom protein (honey bee) Allergy Severe Anaphylaxis Verified 09/16/24 23:02 Review of Systems ROS Statement: Those systems with pertinent positive or pertinent negative responses have been documented in the HPI. ROS Other: All systems not noted in ROS Statement are negative. Past Medical History Past Medical History: Asthma, Coronary Artery Disease (CAD), GERD/Reflux, Hyperlipidemia, Hypertension, Osteoarthritis (OA) Additional Past Medical History / Comment(s): UTIs, History of Any Multi-Drug Resistant Organisms: MRSA Date of last positivie culture/infection: 2009 MDRO Source:: R arm Past Surgical History: Breast Surgery, Heart Catheterization With Stent Additional Past Surgical History / Comment(s): Approximately 2007 had 2 coronary stents placed at [facility], foot surgery for bunion EGD/colonoscopy with polypectomy-benign, R breast bx x 2-benign, cataracts removed bilaterally. "neck surgery" in [place] screws and bolts in neck Past Anesthesia/Blood Transfusion Reactions: No Reported Reaction Date of Last Stent Placement:: 2007? Smoking Status: Current every day smoker - Past Family History Father Additional Family Medical History / Comment(s): Father "young" due to alcoholism. Mother Additional Family Medical History / Comment(s): Mother of a "blood clot in her heart" in her 60's. General Exam - General Exam Comments Initial Comments: Physical Exam GENERAL: Patient is well-developed and well-nourished. Patient is nontoxic and well-hydrated and is in no distress. HENT: Approximately 3 cm laceration on the occipital scalp no active bleeding EYES: PERRL, EOMI PULMONARY: Unlabored respirations. CARDIOVASCULAR: RRR Warm and well perfused extremities ABDOMEN: Non-distended SKIN: No rashes or bruising : Deferred NEUROLOGIC: Alert and oriented Normal speech Normal gait MUSCULOSKELETAL: Moving all extremities with no apparent injury PSYCHIATRIC: No SI/HI Course Vital Signs 09/16/24 22:47 Temperature 97.3 F L Pulse Rate 67 Respiratory 17 Rate Blood Pressure 122/66 O2 Sat by Pulse 90 L Oximetry Procedures - Laceration Laceration #1 Consent Obtained: verbal consent Indication: laceration Site: scalp Description: linear Depth: simple, single layer Pre-repair: deep structures intact Type of Sutures: other (staple) Patient Tolerated Procedure: well, no complications Additional Comments: 3 pricila Medical Decision Making - Medical Decision Making Was pt. sent in by a medical professional or institution (, PA, NEON INSTALLER, urgent care, hospital, or fpc...) When possible be specific @ -No Did you speak to anyone other than the patient for history (EMS, parent, family, police, friend...)? What history was obtained from this source @ -No Did you review nursing and triage notes (agree or disagree)? Why? @ -I reviewed and agree with nursing and triage notes Were old charts reviewed (outside hosp., previous admission, EMS record, old EKG, old radiological studies, urgent care reports/EKG's, fpc records)? Report findings @ -No old charts were reviewed Differential Diagnosis (chest pain, altered mental status, abdominal pain women, abdominal pain men, vaginal bleeding, weakness, fever, dyspnea, syncope, headache, dizziness, GI bleed, back pain, seizure, CVA, palpatations, mental health)? @ -Not applicable EKG interpreted by me (3pts min.). @ -As above X-rays interpreted by me (1pt min.). @ -None done CT interpreted by me (1pt min.). @ -None done U/S interpreted by me (1pt. min.). @ -None done What testing was considered but not performed or refused? (CT, X-rays, U/S, labs)? Why? @ -None What meds were considered but not given or refused? Why? @ -None Did you discuss the management of the patient with other professionals (professionals i.e. DrItzel, PA, NEON INSTALLER, lab, RT, psych nurse, social media content specialist, airplane pilot commercial, te acher, chief supply chain officer, outsole caser)? Give summary @ -No Was smoking cessation discussed for >3mins.? @ -No Was critical care preformed (if so, how long)? @ -No Were there social determinants of health that impacted care today? How? (Homelessness, low income, unemployed, alcoholism, drug addiction, transportation, low edu. Level, literacy, decrease access to med. care, custodial, rehab)? @ -No Was there de-escalation of care discussed even if they declined (Discuss DNR or withdrawal of care, Hospice)? DNR status @ -No What co-morbidities impacted this encounter? (DM, HTN, Smoking, COPD, CAD, C ancer, CVA, ARF, Chemo, Hep., AIDS, mental health diagnosis, sleep apnea, morbid obesity)? @ -None Was patient admitted / discharged? Hospital course, mention meds given and route, prescriptions, significant lab abnormalities, going to OR and other pertinent info. @ -Discharged Patient determined to be a code coag by triage nurse. Patient was brought immediately back to room 1 evaluated per ATLS protocols and taken to CT for imaging. CT with no acute findings no intracranial bleeding the laceration on back of the scalp was repaired with 3 pricila wound care was discussed with the patient and patient was discharged home in stable condition. Undiagnosed new problem with uncertain prognosis? @ -No Drug Therapy requiring intensive monitoring for toxicity (Heparin, Nitro, Insulin, Cardizem)? @ -No Were any procedures done? @ -Yes, laceration repair Diagnosis/symptom? @ Scalp laceration Acute, or Chronic, or Acute on Chronic? @ -Default Uncomplicated (without systemic symptoms) or Complicated (systemic symptoms)? @ -Default Side effects of treatment? @ -No Exacerbation, Progression, or Severe Exacerbation? @ -No Poses a threat to life or bodily function? How? (Chest pain, [place], PR, pneumonia, PE, COPD, DKA, ARF, appy, cholecystitis, CVA, Diverticulitis, Homicidal, Suicidal, threat to staff... and all critical care pts) @ -No Disposition Clinical Impression: Fall, Scalp laceration Disposition: HOME SELF-CARE Condition: Stable Instructions (If sedation given, give patient instructions): Staple Care (ED) Additional Instructions: Return in 5-7 days to have pricila removed Is patient prescribed a controlled substance at d/c from ED?: No Referrals: Michaela Sullivan MD [Primary Care Provider] - 1-2 days
[2024-09-16 23:10] VITALS: TEMP 97.3
--- NOTE | 2024-09-16 23:32 | CT ---
EXAMINATION TYPE: CT brain severino campbell con DATE OF EXAM: 09/16/2024 COMPARISON: CT cervical spine [address] brain march 22, 2023 HISTORY: Pt states she went to stand up and lost her balance and fell backwards. CT DLP: 1416.4 mGycm. Automated Exposure Control for Dose Reduction was Utilized. TECHNIQUE: CT scan of the head and cervical spine are performed without contrast. FINDINGS: There is no acute intracranial hemorrhage or midline shift identified. There is mild-to-m oderate sulcal prominence greatest superiorly redemonstrated. Ventricular size is stable and mildly e nlarged. Mild to minimal low-attenuation in the periventricular white matter remains present. Calvari um is intact. The globes are intact and the visualized sinuses are clear. Nasal septum is deviated to right of midline. Cervical spine is visualized in its entirety from C1 through upper thoracic levels and redemonstrates grade 1 anterolisthesis C2 on C3 and grade 1 retrolisthesis C4 on C5. Posterior surgical changes C2- C4 levels is redemonstrated . There is asymmetric left-sided narrowing at the C1-C2 articulation red emonstrated. Vertebral body heights are preserved. There is moderate to severe multilevel disc space narrowing and moderate multilevel spurring C3-C4 through C6-C7 levels redemonstrated. Axial images sh ow multilevel vertebral facet degenerative changes bilaterally causing multilevel bilateral neural fo raminal narrowing. Moderate to severe calcified plaque centered near bilateral carotid bulb level is redemonstrated. Thyroid gland appears within normal limits. Lung apices are clear without pneumothora x. IMPRESSION: 1. There is no acute fracture or dislocation evident in the cervical spine. 2. No acute intracranial hemorrhage or midline shift is seen. [facility], , 09/16/2024 11:29 PM
[2024-09-17 00:16] VITALS: BP 101/53; PULSE 59; RESP 18
== END 2024-09-17 00:21 | disposition home or self-care (01) ==
LOC: EC 22:45
DX: S01.01XA Laceration without foreign body of scalp, initial encounter (principal); F17.200 Nicotine dependence, unspecified, uncomplicated; Z91.030 Bee allergy status; Z95.5 Presence of coronary angioplasty implant and graft; W19.XXXA Unspecified fall, initial encounter
CPT/HCPCS: 12001; 70450; 72125; 99283

== ENCOUNTER 2025-03-14 09:46 | Day surgery (SDC) | payer MEDICARE, BC ==
[2025-03-14] MEDS: IV FLUID CONTINUATION 1,000 ML IV ONE (10:16)
[2025-03-14 10:30] VITALS: TEMP 97.9
[2025-03-14] MEDS: LACTATED RINGERS 1,000 ML IV SCH (10:36)
[2025-03-14] MEDS ORDERED: LIDOCAINE 2% (PF) 20 MG/ML 5 ML VIAL ONE (11:08)
[2025-03-14] MEDS ORDERED: PROPOFOL 10 MG/ML 20 ML VIAL IV ONE (11:08)
--- NOTE | 2025-03-14 11:22 | P.PCN ---
Date of Procedure: 03/14/25 Procedure(s) Performed: BRIEF HISTORY: Patient is a 74-year-old, pleasant, white female scheduled for an upper endoscopy as part of evaluation of intermittent dysphagia to solids for the last 1 month duration. PROCEDURE PERFORMED: Esophagogastroduodenoscopy. PREOPERATIVE DIAGNOSIS: Intermittent dysphagia to solids of 1 month duration. IV sedation per anesthesia. PROCEDURE: After informed consent was obtained, the patient was brought into the endoscopy unit. IV sedation was administered by Anesthesia under continuous monitoring. Initially the Olympus GIF-140 video endoscope was inserted into the mouth. Esophagus intubated with with mild difficulty suspicious for mild cricopharyngeal dysfunction.. It was gradually advanced into the stomach and duodenum and carefully examined. The bulb and the second part of the duodenum appeared normal. The scope at this time was withdrawn to the stomach, adequately insufflated with air, and upon careful examination, mucosa of the antrum, body, cardia and the fundus appeared normal. The scope was then withdrawn into the esophagus. Small hiatal hernia noted. The GE junction was located at 39 cm from the incisors. The esophagus appeared normal. There were no erosions or ulcerations seen. No evidence of esophageal stricture. The proximal cervical esophagus was carefully examined and once again there was mild cricopharyngeal dysfunction noted but there was no esophagitis or esophageal stricture and the patient tolerated the procedure well. IMPRESSION: 1. Small hiatal hernia. 2. Slightly tight upper esophageal sphincter consistent with mild cricopharyngeal dysfunction but with no esophageal stricture or Zenker's diverticulum seen RECOMMENDATIONS: The findings of this examination were discussed with the patient as well as her family. She was advised to continue with soft diet. If she has worsening symptoms follow-up in the office for further management..
[2025-03-14 12:29] VITALS: BP 118/64; PULSE 74; RESP 17
== END 2025-03-14 12:41 | disposition home or self-care (01) ==
LOC: ORWHC2ENDO 09:46
PROVIDERS: ATTEND Internal Medicine Gastroenterology
DX: K44.9 Diaphragmatic hernia without obstruction or gangrene (principal); I10 Essential (primary) hypertension; E78.5 Hyperlipidemia, unspecified; I25.10 Atherosclerotic heart disease of native coronary artery without angina pectoris; J45.909 Unspecified asthma, uncomplicated; K21.9 Gastro-esophageal reflux disease without esophagitis; F17.200 Nicotine dependence, unspecified, uncomplicated; Z95.5 Presence of coronary angioplasty implant and graft; Z79.51 Long term (current) use of inhaled steroids; Z79.899 Other long term (current) drug therapy; Z79.82 Long term (current) use of aspirin; Z79.1 Long term (current) use of non-steroidal anti-inflammatories (NSAID); Z91.030 Bee allergy status; Z98.890 Other specified postprocedural states
CPT/HCPCS: 43235; J2704; J2003

== ENCOUNTER → 2025-05-07 | Outpatient (CLI) | payer MEDICARE, BC ==
--- NOTE | 2025-05-07 13:35 | MM ---
Reason for Exam: Screening (asymptomatic). Last screening mammogram was performed 12 month(s) ago. Patient History: Menarche at age 16. First Full-Term at age 20. Postmenopausal. 1996, Benign Excisional Biopsy on the right side. 2001, Benign Excisional Biopsy on the right side. 03/03/2017, Benign Core Biopsy on the left side. Maternal aunt had breast cancer, age 50. Mother had breast cancer, age 50. Risk Values: Ada 5 year model risk: 4.5%. NCI Lifetime model risk: 10.7%. Prior Study Comparison: 04/06/2018 Bilateral Screening Mammogram, [facility]. 05/18/2019 Bilateral Screening Mammogram, [facility]. 10/11/2020 Bilateral Screening Mammogram, [facility]. 04/15/2022 Bilateral MG 3D screening mammo w/cad, [facility]. 04/16/2023 Bilateral MG 3D screening mammo w/cad, [facility]. 05/03/2024 Bilateral MG 3D screening mammo w/cad, [facility]. Tissue Density: The breasts are heterogeneously dense, which may obscure small masses. Findings: Analyzed By CAD. Nodular asymmetry upper outer left breast seen best on the MLO view 10 cm from the nipple. Additional views are recommended. Stable benign calcifications. Overall Assessment: Incomplete: need additional imaging evaluation, BI-RAD 0 Management: Diagnostic Mammogram of the left breast. . Patient should continue monthly self-breast exams. A clinical breast exam by your physician is recommended on an annual basis. This exam should not preclude additional follow-up of suspicious palpable abnormalities. Note on Ada scores and lifetime risk: 1. A Ada score greater than 3% is considered moderate risk. If this is the case, consider specialist referral to assess eligibility for a risk reducing agent. 2. If overall lifetime risk for the development of breast cancer is 20% or higher, the patient may qualify for future screening with alternating mammogram and breast MRI. [facility], , 05/07/2025 1:25 PM. Electronically signed and approved by: Sridhar Velez M.D. Radiologis
--- NOTE | 2025-05-08 11:04 | BD ---
EXAMINATION TYPE: Axial Bone Density DATE OF EXAM: 05/07/2025 CLINICAL HISTORY: 74 years old Female. ICD-10 CODE: Z78.0 MENOPAUSAL STATE , Additional History: Height: 59 Weight: 105.3 FRAX RISK QUESTIONS: Alcohol (3 or more units per day): no Family History (Parent hip fracture): no Glucocorticoids (More than 3mos): no (Ex: prednisone, prednisolone, methylprednisolone, dexamethasone, and hydrocortisone). History of Fracture in Adulthood: yes Secondary Osteoporosis: 1. Type 1 Diabetes: no 2. Hyperthyroidism: no 3. Menopause before 45: no 4. Malnutrition: no 5. Chronic liver disease: no Rheumatoid Arthritis: no Current Tobacco Use: yes RISK FACTORS HISTORY OF: Surgery to Spine/Hip(right/left)/Wrist (right/left): no EXAM MEASUREMENTS: Bone mineral densitometry was performed using the [email or web address] System. Bone mineral density as measured about the Lumbar spine is: ----- L1-L4(G/cm2): 1.458 T Score Values are as follows: ----- L1: 2.1 ----- L2: 1.5 ----- L3: 2.7 ----- L4: 2.7 ----- L1-L4: 2.3 Z Score Values are as follows: ----- L1: 4.4 ----- L2: 3.8 ----- L3: 5.0 ----- L4: 5.0 ----- L1-L4: 4.6 Bone mineral density has: decreased -2.7 % since study of: 04.15.2022 Bone mineral density about the R hip (g/cm2): 0.756 Bone mineral density about the L hip (g/cm2): 0.804 T Score values are as follows: -----R Neck: -2.1 -----L Neck: -1.3 -----R Total: -2.0 -----L Total: -1.6 Z Score values are as follows: -----R Neck: 0.1 -----L Neck: 1.0 -----R Total: 0.1 -----L Total: 0.5 Bone mineral density has: decreased -1.0 % since study of: 2021 FRAX%s: The graph provided illustrates a 20.0% chance for a major osteoporotic fx and a 7.7% chance f or the hips probability for fx in 10 years time. IMPRESSION: Osteopenia (T Score between -2.5 and -1). There is slightly increased risk of fracture and the patient may be considered for treatment. Re-Screen 2-5 years. NOTE: T-SCORE=SD OF THE YOUNG ADULT MEAN. [facility], , 05/08/2025 11:01 AM
== END | disposition home or self-care (01) ==
LOC: RADMAMWWP 12:21
PROVIDERS: ATTEND Family Medicine
DX: Z12.31 Encounter for screening mammogram for malignant neoplasm of breast (principal); R92.333 Mammographic heterogeneous density, bilateral breasts; Z78.0 Asymptomatic menopausal state; Z80.3 Family history of malignant neoplasm of breast; M85.89 Other specified disorders of bone density and structure, multiple sites
CPT/HCPCS: 77063; 77067; 77080

== ENCOUNTER → 2025-05-11 | Outpatient (CLI) | payer MEDICARE, BC ==
--- NOTE | 2025-05-11 11:26 | MM ---
Reason for Exam: Additional evaluation requested from abnormal screening. Last screening mammogram was performed less than 1 month ago. Patient History: Menarche at age 16. First Full-Term at age 20. Postmenopausal. 1996, Benign Excisional Biopsy on the right side. 2001, Benign Excisional Biopsy on the right side. 03/03/2017, Benign Core Biopsy on the left side. Maternal aunt had breast cancer, age 50. Mother had breast cancer, age 50. Risk Values: Ada 5 year model risk: 4.5%. NCI Lifetime model risk: 10.7%. Prior Study Comparison: 04/16/2023 Bilateral MG 3D screening mammo w/cad, [facility]. 05/03/2024 Bilateral MG 3D screening mammo w/cad, [facility]. 05/07/2025 Bilateral MG 3D screening mammo w/cad, [facility]. Tissue Density: Left: The breasts are heterogeneously dense, which may obscure small masses. Findings: Analyzed By CAD. Surgical clips left breast. Benign-appearing calcification. No dominant mass or architectural distortion. Overall Assessment: Probably benign, BI-RAD 3 Management: Diagnostic Mammogram of the left breast in 6 months. . Results were given to the patient verbally at the time of exam. Patient should continue monthly self-breast exams. A clinical breast exam by your physician is recommended on an annual basis. This exam should not preclude additional follow-up of suspicious palpable abnormalities. Note on Ada scores and lifetime risk: 1. A Ada score greater than 3% is considered moderate risk. If this is the case, consider specialist referral to assess eligibility for a risk reducing agent. 2. If overall lifetime risk for the development of breast cancer is 20% or higher, the patient may qualify for future screening with alternating mammogram and breast MRI. [facility], , 05/11/2025 11:23 AM. Electronically signed and approved by: Hao Quiles M.D. Radiologis
[2025-05-11 16:02] LABS: ALT 19 U/L (8-44); AST 27 U/L (13-35); Albumin 4.6 g/dL (3.8-4.9); Albumin/Globulin Ratio 1.84 Ratio (1.60-3.17); Alkaline Phosphatase 67 U/L (41-126); Anion Gap 15.20 mmol/L (4.00-12.00); BUN/Creat Ratio 16.31 Ratio (12.00-20.00); Blood Urea Nitrogen 21.2 mg/dL (9.0-27.0); Calcium 10.1 mg/dL (8.7-10.3); Carbon Dioxide 24.8 mmol/L (21.6-31.8); Chloride 96 mmol/L (96-109); Cholesterol 183.00 mg/dL (0.00-200.00); Globulin 2.5 g/dL (1.6-3.3); Glucose 101 mg/dL (70-110); HDL Cholesterol 124.00 mg/dL (40.00-60.00); LDL Cholesterol,Calculated 47.0 mg/dL (0.0-131.0); Potassium 4.6 mmol/L (3.5-5.5); Sodium 136 mmol/L (135-145); Total Protein 7.1 g/dL (6.2-8.2); Triglycerides 59.80 mg/dL (0.00-149.00); VLDL Calculation 11.96 mg/dL (5.00-40.00)
[2025-05-11 16:11] LABS: NT-Pro-B-Type Natriuretic Pept 713 pg/mL (0-125)
== END | disposition home or self-care (01) ==
LOC: RADMAMWWP 11:00
PROVIDERS: ATTEND Surgery
DX: R92.8 Other abnormal and inconclusive findings on diagnostic imaging of breast (principal); R92.332 Mammographic heterogeneous density, left breast; Z78.0 Asymptomatic menopausal state; Z80.3 Family history of malignant neoplasm of breast
CPT/HCPCS: 83880; 80053; 80061; 82306; 77065; G0279; 77061